=== PATIENT | female | born 1935 | race Caucasian/White ===

== ENCOUNTER 2020-03-31 12:43 | Inpatient (IN) | payer OTHER ==
[2020-03-31] MEDS ORDERED: SODIUM CHLORIDE 1,000 ML IV SCH (13:00)
[2020-03-31] MEDS ORDERED: SODIUM CHLORIDE 2,177 ML IV ONE (13:59)
[2020-03-31] MEDS ORDERED: ACETAMINOPHEN 1000 MG/100 ML VIAL (NON FORMULARY) IVPB ONE (14:05)
[2020-03-31 14:22] LABS: BASO % 0.7 % (0-2.0); EOS % 0.3 % (0-4.5); HEMATOCRIT 44.8 % (32.4-45.2); HEMOGLOBIN 14.9 GM/dL (10.7-15.3); LYMPH % 3.9 % (8-40); MCH 29.3 pg (25.7-33.7); MCHC 33.3 g/dl (32.0-36.0); MEAN CELL VOLUME 88.1 fl (80-96); MEAN PLT VOLUME 7.3 fl (7.5-11.1); MONO % 7.4 % (3.8-10.2); NEUT % 87.7 % (42.8-82.8); PLATELET COUNT 288 K/MM3 (134-434); RBC 5.09 M/mm3 (3.60-5.2); RDW 15.3 % (11.6-15.6)
[2020-03-31] MEDS ORDERED: LACTATED RINGERS SOLUTION 1000 ML INFUS.BAG IV ONE (14:23)
[2020-03-31] MEDS ORDERED: ACETAMINOPHEN INJECTION 100 ML IVPB ONE (14:42)
[2020-03-31 14:59] LABS: VENOUS BASE EXCESS -3.2 mmol/L (-2-2); VENOUS O2 SATURATION 46.5 % (70-80); VENOUS PCO2 44.3 mmHg (38-52); VENOUS PH 7.33 (7.310-7.410)
[2020-03-31 15:02] LABS: ALBUMIN 3.7 g/dl (3.4-5.0); ALK PHOS 81 U/L (45-117); ANION GAP 7 MMOL/L (8-16); BILIRUBIN,TOTAL 0.5 mg/dL (0.2-1); BLOOD UREA NITROGEN 22.4 mg/dL (7-18); CALCIUM 9.1 mg/dL (8.5-10.1); CHLORIDE 108 mmol/L (98-107); CO2 27 mmol/L (21-32); CREATININE 1.4 mg/dL (0.55-1.3); GLUCOSE,RANDOM 164 mg/dL (74-106); POTASSIUM 4.1 mmol/L (3.5-5.1); SGOT/AST 19 U/L (15-37); SGPT/ALT 19 U/L (13-61); SODIUM 141 mmol/L (136-145); TOT PROT 7.2 g/dl (6.4-8.2)
[2020-03-31 15:10] LABS: ANISOCYTOSIS 1+; MACROCYTOSIS 0; OVALOCYTE 1+; PLATELET ESTIMATE NORMAL; TEAR DROP CELLS 1+
--- NOTE | 2020-03-31 15:10 | PDOC ---
Attending Attestation - Resident Resident Name: Thomas Christensen - ED Attending Attestation I have performed the following: I have examined & evaluated the patient, The case was reviewed & discussed with the resident, I agree w/resident's findings & plan - HPI HPI: 03/31/20 15:07 High functioning 84-year-old female with history of early dementia brought in by son for episode of unresponsiveness earlier today. Patient has been at her b aseline, which includes near complete ADLs, but today was found seated by son confused and lethargic. now improved, has no specific complaints other than generalized weakness. - Physicial Exam PE: 03/31/20 15:09 febrile, o2 sat upper 80s on room air, sat 100 on 2L on my exam alert, coherent, pleasant atraumatic, neck supple s1s2 rrr. coarse BS both bases abd benign no edema, moves all 4 extremities neuro nonfocal - Medical Decision Making 03/31/20 15:10 84-year-old female presents with altered mental status/generalized weakness, febrile on arrival concerning for Sirs/sepsis. Sepsis protocol initiated IV fluids, antipyretics Chest x-ray, EKG Antibiotics as dictated by findings Admit Heart Score/ECG Review #1 ECG reviewed & interpreted by me at: 13:18 General ECG Interpretation: Sinus Rhythm, Normal Rate (73), Normal Intervals (qtc 464), No acute ischemic changes Discharge - Discharge Information Problems reviewed: Yes Clinical Impression/Diagnosis: Fever Qualifiers: Fever type: unspecified Qualified Code(s): R50.9 - Fever, unspecified Condition: Fair - Follow up/Referral Referrals: Kwaku Mcknight MBBS [Primary Care Provider] - - Patient Discharge Instructions - Post Discharge Activity
--- NOTE | 2020-03-31 15:15 | PDOC ---
History of Present Illness - General Chief Complaint: Diarrhea Stated Complaint: GASTRIC PROBLEMS Time Seen by Provider: 03/31/20 13:46 - History of Present Illness Initial Comments: 03/31/20 14:59 84yo F w/ hx of HTN, HLD, and dementia presents after her son found her lethargic in the rocking chair this AM after soiling herself. Son called 911, and by the time she arrived she was "responsive and oriented to her baseline," according to the son. Son denies similar episodes, recent ABX, fevers, rashes, changes in appetite, b owel or bladder habits. Was recently seen by her PCP via telehealth. Apparently she was noted to be healthy except for her blood sugar being close to DM2, according to the son. Denies h/o seizures. Past History - Medical History Allergies/Adverse Reactions: Allergies Allergy/AdvReac Type Severity Reaction Status Date / Time No Known Allergies Allergy Verified 03/31/20 13:20 Home Medications: Ambulatory Orders Citalopram Hydrobromide [Citalopram HBr] 40 mg PO DAILY 03/31/20 Lisinopril [Prinivil -] 40 mg PO DAILY 03/31/20 Memantine HCl [Memantine HCl ER] 28 mg PO DAILY 03/31/20 Omeprazole 20 mg PO DAILY 03/31/20 Pravastatin Sodium [Pravachol (Nf)] 40 mg PO HS 03/31/20 COPD: No Dementia: Yes Diabetes: Yes HTN: Yes Hypercholesterolemia: Yes Psychiatric Problems: Yes (anxiety) - Reproductive History Is Patient Now?: No - Psycho-Social/Smoking History Smoking History: Never smoked - Substance Abuse Hx (Audit-C & DAST Scrn) How often the patient has a drink containing alcohol: Never Score: In Men: 4 or > Positive; In Women: 3 or > Positive: 0 Screen Result (Pos requires Nsg. Audit-10AR): Negative In the last yr the pt used illegal drug/Rx for NonMed reason: No Score: Yes response is considered Positive: 0 Screen Result (Positive result requires Nsg. DAST-10): Negative Review of Systems - Review of Systems Able to Perform ROS?: No (given by son) Constitutional: No: Fever, Loss of Appetite, Malaise HEENTM: No: Nose Congestion Respiratory: No: Cough, Wheezing, Productive cough Cardiac (ROS): No: Syncope ABD/GI: Yes: Diarrhea (1 episode, only today). No: Constipated, Vomiting : No: Dysuria, Hematuria, Incontinence, Pain Integumentary: No: Bruising, Pallor, Rash Neurological: No: Seizure Endocrine: No: Unexplained Weight Gain, Unexplained Weight Loss *Physical Exam - Vital Signs Last Vital Signs Temp Pulse Resp BP Pulse Ox 101.6 F H 67 18 126/73 100 03/31/20 12:50 03/31/20 12:50 03/31/20 12:50 03/31/20 12:50 03/31/20 12:50 - Physical Exam 03/31/20 15:20 confused at baseline General Appearance: Yes: Nourished, Appropriately Dressed, Disheveled HEENT: positive: EOMI, Normal Voice. negative: Scleral Icterus (R), Scleral Icterus (L), Sinus Tenderness Neck: positive: Trachea midline, Supple. negative: Rigidity Respiratory/Chest: positive: Lungs Clear, Normal Breath Sounds. negative: Respiratory Distress, Accessory Muscle Use, Labored Respiration Cardiovascular: positive: Regular Rhythm, Regular Rate Gastrointestinal/Abdominal: positive: Normal Bowel Sounds, Soft. negative: Tender, Distended Integumentary: positive: Normal Color, Dry, Warm Neurologic: positive: Alert, Motor Strength 5/5, Confused, Other (Stroke FAST exam negative). negative: Fully Oriented (demented at baseline) Heart Score/ECG Review - ECG Intrepretation Rhythm: Regular Rhythm - Nesmith Nesmith: Normal - P and [place] Atrial Enlargement: Left - QRS Poor R Wave Progression: Yes Q Wave Present: No - ST and T Early Repolarization: No Non Specific ST-T Wave changes: No Flattened T Waves: No - ECG Impressions Normal ECG: Yes Non-specific ST Elevation: No Bradycardia: No Comment:: 03/31/20 16:18 NSR, artifact baseline Rate [address] changes appreciated Normal axis Poor R wave progression in V3 no hypertrophy appreciated intervals wnl. ED Treatment Course - LABORATORY CBC & Chemistry Diagram: 04/01/20 07:10 04/01/20 07:10 - ADDITIONAL ORDERS Additional order review: 03/31/20 14:07 RBC 5.09 MCV 88.1 MCHC 33.3 RDW 15.3 MPV 7.3 L Neutrophils % 87.7 H Lymphocytes % 3.9 L Monocytes % 7.4 Eosinophils % 0.3 Basophils % 0.7 - RADIOLOGY Radiology Studies Ordered: Category Date Time Status HEAD CT WITHOUT CONTRAST [CT] Stat CT Scan 03/31/20 14:03 Ordered CHEST X-RAY PORTABLE* [RAD] Stat Radiology 03/31/20 14:00 Ordered - Medications Given in the ED: ED Medications Discontinued Medications Generic Name Dose Route Start Last Admin Trade Name Claire PRN Reason Stop Dose Admin Acetaminophen 1,000 mg 03/31/20 14:05 03/31/20 14:45 Ofirmev Injection - IVPB 03/31/20 14:06 1,000 mg ONCE ONE Administration Sodium Chloride 1,000 mls @ 42 mls/hr 03/31/20 13:00 03/31/20 14:49 Normal Saline - IV Not Given ASDIR CHIKIS Sodium Chloride 2,177 mls @ 1,088.5 mls/hr 03/31/20 13:59 03/31/20 14:49 Normal Saline - 30 ml/kg infuse over 2 hr (2177 ml) 03/31/20 15:58 Not Given IV ONCE ONE Lactated Ringer's 1,000 ml 03/31/20 14:23 03/31/20 14:49 Lactated Ringers Solution IV 03/31/20 14:24 1,000 ml ONCE ONE Administration Medical Decision Making - Medical Decision Making 03/31/20 15:24 84yo F w/ hx of HTN, HDL, and dementia presenting w/ GARCIA, 1 episode diarrhea, fever, and lethargy this AM. DDx: bleed, CVA/TIA, seizure, hypoglycemia, infection, syncope. no trauma, no focal neuro deficits, but with GARCIA and HTN -> will CT head to assess for bleed. no focal neuro deficits, now at baseline orientation -> CVA less likely. Still considering TIA. WBC elevated to 20. -> likely infection -> CXR and UA and will empirically cover w/ Vanc and Zosyn 03/31/20 16:37 03/31/20 17:04 UA negative for infection. XRay read as elevated hemidiaphragm vs hiatal hernia 03/31/20 18:13 UA negative. still no source of elevated WBC and fever. Given Diarrhea and still no source -> will CT ABD and pelvis CT ABD Pelvis read as no acute pathology. Will sign out this patient to Dr. Menon. Discharge - Discharge Information Problems reviewed: Yes Clinical Impression/Diagnosis: Fever Qualifiers: Fever type: unspecified Qualified Code(s): R50.9 - Fever, unspecified Leukocytosis Qualifiers: Leukocytosis type: bandemia Qualified Code(s): D72.825 - Bandemia Condition: Fair - Follow up/Referral - Patient Discharge Instructions - Post Discharge Activity
[2020-03-31] MEDS ORDERED: VANCOMYCIN 1,000 MG in DEXTROSE 5%-WATER - 250 ML IVPB ONE (16:36)
[2020-03-31] MEDS ORDERED: PIPERACILLIN/TAZOB 3.375 GM 3.375 GM in DEXTROSE 5%-WATER - 50 ML IVPB ONE (16:36)
[2020-03-31] MEDS ORDERED: PIPERACILLIN/TAZOB 2.25 GM 2.25 GM in DEXTROSE 5%-WATER - 50 ML IVPB ONE (16:38)
[2020-03-31 16:41] LABS: EPI CELLS >36 /uL (0-25.1); HYALINE CASTS 25 /uL (0-3.1); PH,URINE 5.5 (5.0-8.0); URINE APPEARANCE CLEAR; URINE BACTERIA 49 /uL (0-1359); URINE BILIRUBIN NEGATIVE (NEGATIVE); URINE COLOR YELLOW; URINE GLUCOSE (UA) NEGATIVE (NEGATIVE); URINE KETONE NEGATIVE (NEGATIVE); URINE LEUK ESTERASE NEGATIVE (NEGATIVE); URINE NITRITE NEGATIVE (NEGATIVE); URINE PROTEIN 1+ (NEGATIVE); URINE RBC 23 /uL (0-23.9); URINE UROBILINOGEN 0.2 mg/dL (0.2-1.0); URINE WBC 39 /uL (0-25.8)
[2020-03-31] MEDS ORDERED: PIPERACILLIN/TAZOB 2.25 GM 2.25 GM/50 ML BAG IVPB ONE (17:03)
[2020-03-31] MEDS ORDERED: VANCOMYCIN 1 GRAM (PRE-DOCKED) 1,000 MG/250 ML BAG IVPB ONE (17:04)
--- NOTE | 2020-03-31 20:27 | PDOC ---
*Physical Exam - Vital Signs Last Vital Signs Temp Pulse Resp BP Pulse Ox 98.9 F 57 L 20 127/67 95 03/31/20 18:09 03/31/20 20:00 03/31/20 20:00 03/31/20 20:00 03/31/20 20:00 ED Treatment Course - LABORATORY CBC & Chemistry Diagram: 03/31/20 14:07 03/31/20 14:07 - ADDITIONAL ORDERS Additional order review: Laboratory Results 03/31/20 03/31/20 03/31/20 18:10 16:00 14:40 VBG pH 7.330 POC VBG pCO2 44.3 POC VBG pO2 27.3 L VBG HCO3 22.8 L VBG O2 Sat (Harris) 46.5 L VBG Base Excess -3.2 L Sodium Potassium Chloride Carbon Dioxide Anion Gap BUN Creatinine Est GFR (CKD-EPI)AfAm Est GFR (CKD-EPI)NonAf Random Glucose Lactic Acid 1.8 Calcium Total Bilirubin AST ALT Alkaline Phosphatase Creatine Kinase CK-MB (CK-2) Troponin I Total Protein Albumin Urine Color Yellow Urine Appearance Clear Urine pH 5.5 Ur Specific Beverly 1.014 Urine Protein 1+ H Urine Glucose (UA) Negative Urine Ketones Negative Urine Blood Negative Urine Nitrite Negative Urine Bilirubin Negative Urine Urobilinogen 0.2 Ur Leukocyte Esterase Negative Urine WBC (Auto) 39 Urine RBC (Auto) 23 Urine Casts (Auto) 25 U Epithel Cells (Auto) >36 Urine Bacteria (Auto) 49 Blood Type Antibody Screen 03/31/20 03/31/20 03/31/20 14:07 14:07 14:07 VBG pH POC VBG pCO2 POC VBG pO2 VBG HCO3 VBG O2 Sat (Harris) VBG Base Excess Sodium 141 Potassium 4.1 Chloride 108 H Carbon Dioxide 27 Anion Gap 7 L BUN 22.4 H Creatinine 1.4 H Est GFR (CKD-EPI)AfAm 39.33 Est GFR (CKD-EPI)NonAf 33.94 Random Glucose 164 H Lactic Acid 2.1 H Calcium 9.1 Total Bilirubin 0.5 AST 19 ALT 19 Alkaline Phosphatase 81 Creatine Kinase 139 CK-MB (CK-2) 3.1 Troponin I < 0.02 Total Protein 7.2 Albumin 3.7 Urine Color Urine Appearance Urine pH Ur Specific Beverly Urine Protein Urine Glucose (UA) Urine Ketones Urine Blood Urine Nitrite Urine Bilirubin Urine Urobilinogen Ur Leukocyte Esterase Urine WBC (Auto) Urine RBC (Auto) Urine Casts (Auto) U Epithel Cells (Auto) Urine Bacteria (Auto) Blood Type A NEGATIVE Antibody Screen Negative 03/31/20 14:07 RBC 5.09 MCV 88.1 MCHC 33.3 RDW 15.3 MPV 7.3 L Neutrophils % 87.7 H Lymphocytes % 3.9 L Monocytes % 7.4 Eosinophils % 0.3 Basophils % 0.7 - Medications Given in the ED: ED Medications Discontinued Medications Generic Name Dose Route Start Last Admin Trade Name Jamesq PRN Reason Stop Dose Admin Acetaminophen 1,000 mg 03/31/20 14:05 03/31/20 14:45 Ofirmev Injection - IVPB 03/31/20 14:06 1,000 mg ONCE ONE Administration Sodium Chloride 1,000 mls @ 42 mls/hr 03/31/20 13:00 03/31/20 14:49 Normal Saline - IV Not Given ASDIR CHIKIS Sodium Chloride 2,177 mls @ 1,088.5 mls/hr 03/31/20 13:59 03/31/20 14:49 Normal Saline - 30 ml/kg infuse over 2 hr (2177 ml) 03/31/20 15:58 Not Given IV ONCE ONE Vancomycin HCl 1,000 mg/ 250 mls @ 166.667 mls/hr 03/31/20 16:36 03/31/20 18:08 Dextrose IVPB 03/31/20 18:05 166.667 mls/hr ONCE ONE Administration Piperacillin Sod/Tazobactam 50 mls @ 100 mls/hr 03/31/20 16:36 03/31/20 18:25 Sod 3.375 gm/ Dextrose IVPB 03/31/20 17:05 Not Given ONCE ONE Protocol Piperacillin Sod/Tazobactam 50 mls @ 100 mls/hr 03/31/20 16:38 03/31/20 17:10 Sod 2.25 gm/ Dextrose IVPB 03/31/20 17:07 100 mls/hr ONCE ONE Administration Protocol Lactated Ringer's 1,000 ml 03/31/20 14:23 03/31/20 14:49 Lactated Ringers Solution IV 03/31/20 14:24 1,000 ml ONCE ONE Administration Medical Decision Making - Medical Decision Making 03/31/20 20:26 s/o from AM team - CT C/A/P demonstrating large hiatal hernia but no definite source for fever and WBC - labs reviewed; WBC 20 - will admit for suspected sepsis 03/31/20 21:24 endorsed to hospitalist Discharge - Discharge Information Problems reviewed: Yes Clinical Impression/Diagnosis: Fever Qualifiers: Fever type: unspecified Qualified Code(s): R50.9 - Fever, unspecified Condition: Fair - Admission Yes - Follow up/Referral Referrals: Kwaku Mcknight MBBS [Primary Care Provider] - - Patient Discharge Instructions - Post Discharge Activity
--- NOTE | 2020-03-31 21:03 | PN ---
Teaching Attending Note Name of Resident: Feliz Balderas ATTENDING PHYSICIAN STATEMENT I saw and evaluated the patient. I reviewed the resident's note and discussed the case with the resident. I agree with the resident's findings and plan as documented. SUBJECTIVE: Patient is an 84 year old woman with a PMH of HTN, HLD and Dementia presents af ter her son found her lethargic in the rocking chair this morning after soiling herself. Son called 911, and by the time they arrived she was "responsive and oriented to her baseline," according to the son. Son denies similar episodes, recent antibiotics use, fevers, rashes, seizures, changes in appetite, bowel or bladder habits. Was recently seen by her PCP via telehealth. Apparently she was noted to be healthy except for hyperglycemia. No reported chest pain, shortness of breath, abdominal pain, vomiting, dysuria, frequency, melena, hematochezia or hematuria. Denies alcohol, tobacco or illicit drug use. No sick contacts or recent travels. Family history is unremarkable. OBJECTIVE: Alert Vital Signs Period Temp Pulse Resp BP Sys/Beckwith Pulse Ox Last 24 Hr 98.9 F-101.6 F 57-67 18-20 126-144/67-84 95-100 HEENT: No Jaundice, eye redness or discharge, PERRLA, EOMI. Normocephalic, atraumatic. External ears are normal and hearing is grossly intact. No nasal discharge. Neck: Supple, nontender. No palpable adenopathy or thyromegaly. No JVD Chest: Good effort. Clear to auscultation and percussion. Heart: Regular. No S3 or rub; 3/6 SIA. Abdomen: Not distended, soft, nontender and no HSM. No rebound or guarding. Normal bowel sounds. Ext: Peripheral pulses intact. No leg edema. Skin: Warm and dry. No petechiae, rash or ecchymosis. Neuro: Alert. Oriented x3. CN 2-12 grossly intact. Sensation grossly intact in all four extremities and DTR are symmetric. Psych: Appropriate mood and affect. Good insight. Home Medications Medication Instructions Recorded Citalopram Hydrobromide 40 mg PO DAILY 03/31/20 [Citalopram HBr] Lisinopril [Prinivil -] 40 mg PO DAILY 03/31/20 Memantine HCl [Memantine HCl ER] 28 mg PO DAILY 03/31/20 Omeprazole 20 mg PO DAILY 03/31/20 Pravastatin Sodium [Pravachol (Nf)] 40 mg PO HS 03/31/20 Abnormal Lab Results 03/31/20 03/31/20 03/31/20 14:07 14:07 14:07 WBC 20.0 H MPV 7.3 L Absolute Neuts (auto) 17.5 H Neutrophils % 87.7 H Neutrophils % (Manual) 86.9 H Lymphocytes % 3.9 L Lymphocytes % (Manual) 5.0 L POC VBG pO2 VBG HCO3 VBG O2 Sat (Harris) VBG Base Excess Chloride 108 H Anion Gap 7 L BUN 22.4 H Creatinine 1.4 H Random Glucose 164 H Lactic Acid 2.1 H Urine Protein 03/31/20 03/31/20 14:40 16:00 WBC MPV Absolute Neuts (auto) Neutrophils % Neutrophils % (Manual) Lymphocytes % Lymphocytes % (Manual) POC VBG pO2 27.3 L VBG HCO3 22.8 L VBG O2 Sat (Harris) 46.5 L VBG Base Excess -3.2 L Chloride Anion Gap BUN Creatinine Random Glucose Lactic Acid Urine Protein 1+ H Current Medications Generic Name Dose Route Start Last Admin Trade Name Freq PRN Reason Stop Dose Admin Heparin Sodium (Porcine) 5,000 unit 03/31/20 22:30 Heparin - SQ TID CHIKIS Sodium Chloride 1,000 mls @ 83 mls/hr 03/31/20 22:30 Normal Saline - IV ASDIR CHIKIS Vancomycin HCl 1 gm in 200 mls @ 133.333 mls/hr 04/01/20 10:00 Vancomycin 1 Gm Premix - IVPB Q24H CHIKIS Piperacillin Sod/Tazobactam 50 mls @ 100 mls/hr 04/01/20 10:00 Sod 3.375 gm/ Dextrose IVPB Q8H-IV CHIKIS Protocol Piperacillin Sod/Tazobactam 50 mls @ 100 mls/hr 04/01/20 10:00 Sod 3.375 gm/ Dextrose IVPB 04/02/20 02:29 Q8H CHIKIS Vancomycin HCl 1,000 mg in 250 mls @ 250 mls/hr 04/01/20 10:00 Vancomycin (Pre-Docked) IVPB 04/01/20 10:59 ONCE ONE Insulin Aspart 1 vial 04/01/20 07:00 Novolog Vial Sliding Scale - SQ ACHS [facility] Protocol ASSESSMENT AND PLAN: 1. Sepsis of unknown source - No acute abnormality on CXR. No evidence of acute intracranial pathology on noncontrast head CT scan. CT scan of chest/abdomen/pelvis with IV contrast shows hiatal hernia and chronic interstitial lung disease. Viral testing for COVID-19 ordered and patient placed on airborne, droplet and contact isolation. ER staff prescribed IV Vancomycin, IV Zosyn and IV NS for the patient. Will consult Neurology and ID and discuss n eed for spinal tap to rule out meningitis. EKG shows at 73/minute and QTc 464 with no significant acute ischemic ST-T wave changes. Initial troponin is negative. Will continue IV NS according to sepsis protocol, continue IV antibiotics, check HbA1c, monitor blood glucose and implement insulin sliding scale, do speech and swallow evaluation, neurochecks and implement fall/aspiration/seizure precautions. Consult ID. Will continue comprehensive care for all of patients comorbid conditions. 2. HUI? Likely partly due to dehydration. Will get kidney sonogram, hydrate with IV NS, monitor urine output and consult Nephrology. Avoid nephrotoxic agents such as NSAIDS, aminoglycosides, contrast dyes and certain Alternative medicine products. 3. Hypertension Will restart suitable outpatient antihypertensive drugs when clinically appropriate. Subsequently, will revise regimen to ensure [id number] excellent BP control. Patient counseled on the injurious effects of uncontrolled hypertension. Nonpharmacologic measures to control hypertension like weight loss, salt restriction and exercise stressed. Importance of adherence to treatment regimen and attainment of normotension emphasized. 4. DVT prophylaxis - Heparin 5000u sq tid. 5. Advance directives - Full code
--- NOTE | 2020-04-01 00:40 | HP ---
CHIEF COMPLAINT: AMS, Unresponsive PCP: Kwaku Mcknight HISTORY OF PRESENT ILLNESS: Ratna Howell is a 84 Y F with a PMH of baseline dementia, HTN, HLD, brought in by EMS for AMS/unresponsive at home. Patient is a poor historian, baseline dementia, AAox2. Hx was provided by her son at bedside, who reports that he found his mother on a rocking chair, unresponsive and had Soiled her self( urinary and bowel incontinence). He reports that he called 911, when EMS arrived, she was awake and back to her usual baseline. He denies any complaints from his mother prior to the episode. He reports that she only complained of an headache in ER. No previous episodes, No hx of seizures. Son reports that his mother likes to walk around outside, but denies any tick bites, visible ticks. Son reports that his mother lives with him and he takes turns with his in taking care of her. In ER she received: IV Vancomycin, IV Zosyn and IV NS ER course was notable for: (1) T 101.6, WBC 20, LAc acid 2.1 (2) BUN/Crea 22.4/1.4 (3) CXR Venous congestion + hiatal hernia (4) CT Chest/abdpelv: Chronic interstitial lung disease, Large hiatal hernia Recent Travel: denies PAST MEDICAL HISTORY: As above in HPI PAST SURGICAL HISTORY: Social History: Smoking: denies Alcohol: denies Drugs: denies Allergies No Known Allergies Allergy (Verified 03/31/20 13:20) HOME MEDICATIONS: Home Medications Medication Instructions Recorded Citalopram Hydrobromide 40 mg PO DAILY 03/31/20 [Citalopram HBr] Lisinopril [Prinivil -] 40 mg PO DAILY 03/31/20 Memantine HCl [Memantine HCl ER] 28 mg PO DAILY 03/31/20 Omeprazole 20 mg PO DAILY 03/31/20 Pravastatin Sodium [Pravachol (Nf)] 40 mg PO HS 03/31/20 REVIEW OF SYSTEMS Unable to obtain due to patient mental status Son denies any complaints from mother of chest pain, shortness of breath, abdominal pain, vomiting, dysuria, frequency, melena, hematochezia or hematuria PHYSICAL EXAMINATION Vital Signs - 24 hr 03/31/20 03/31/20 03/31/20 12:50 16:09 18:09 Temperature 101.6 F H 98.9 F Pulse Rate 67 Pulse Rate [ 62 Apical] Respiratory 18 18 19 Rate Blood Pressure 126/73 Blood Pressure 144/84 [Left Arm] O2 Sat by Pulse 100 100 97 Oximetry (%) 03/31/20 03/31/20 03/31/20 18:10 20:00 22:56 Temperature Pulse Rate 62 Pulse Rate [ 57 L 61 Apical] Respiratory 20 18 Rate Blood Pressure Blood Pressure 127/67 130/70 [Left Arm] O2 Sat by Pulse 97 95 95 Oximetry (%) GENERAL: AAOx3, in no acute distress HEENT: NCAT, PERRLA, EOMI, sclera anicteric, conjunctiva clear, oropharynx clear w/o exudates. MMM. NECK: Normal ROM, supple, no lymphadenopathy, JVD, or masses LUNGS: CTABL no wheezes/ rhonchi/ rales. No distress, speaks in full sentences. No increased work of breathing. HEART: RRR, normal S1 S2, Systolic ejection murmur 4/6 along the left lateral border. no /R/G, peripheral pulses 2+ and equal b/l ABDOMEN: Soft, non-tender, + BS. No guarding or rebound. No hepatomegaly or splenomegaly. MSK: ROM WNL, NO CVA tenderness EXTREMITIES: Normal inspection. No peripheral edema. No clubbing or cyanosis. NEUROLOGICAL: CN II-XII intact. Normal speech, gait not observed, no focal sensorimotor deficits. PSYCH: Normal mood, normal affect. SKIN: Warm, Dry, normal turgor, no rashes or lesions noted Laboratory Results - last 24 hr 03/31/20 03/31/20 03/31/20 14:07 14:07 14:07 WBC 20.0 H RBC 5.09 Hgb 14.9 Hct 44.8 MCV 88.1 MCH 29.3 MCHC 33.3 RDW 15.3 Plt Count 288 MPV 7.3 L Absolute Neuts (auto) 17.5 H Neutrophils % 87.7 H Neutrophils % (Manual) 86.9 H Band Neutrophils % 1.0 Lymphocytes % 3.9 L Lymphocytes % (Manual) 5.0 L Monocytes % 7.4 Monocytes % (Manual) 5 Eosinophils % 0.3 Eosinophils % (Manual) 0.0 Basophils % 0.7 Basophils % (Manual) 1.0 Myelocytes % (Man) 0 Promyelocytes % (Man) 0 Blast Cells % (Manual) 0 Nucleated RBC % 0 Metamyelocytes 0 Hypochromia 0 Platelet Estimate Normal Platelet Comment Present Polychromasia 0 Poikilocytosis 1+ Anisocytosis 1+ Microcytosis 1+ Macrocytosis 0 Spherocytes 1+ Tear Drop Cells 1+ Ovalocytes 1+ VBG pH POC VBG pCO2 POC VBG pO2 VBG HCO3 VBG O2 Sat (Harris) VBG Base Excess Sodium 141 Potassium 4.1 Chloride 108 H Carbon Dioxide 27 Anion Gap 7 L BUN 22.4 H Creatinine 1.4 H Est GFR (CKD-EPI)AfAm 39.33 Est GFR (CKD-EPI)NonAf 33.94 Random Glucose 164 H Lactic Acid 2.1 H Calcium 9.1 Total Bilirubin 0.5 AST 19 ALT 19 Alkaline Phosphatase 81 Creatine Kinase 139 CK-MB (CK-2) 3.1 Troponin I < 0.02 Total Protein 7.2 Albumin 3.7 Urine Color Urine Appearance Urine pH Ur Specific [place] Urine Protein Urine Glucose (UA) Urine Ketones Urine Blood Urine Nitrite Urine Bilirubin Urine Urobilinogen Ur Leukocyte Esterase Urine WBC (Auto) Urine RBC (Auto) Urine Casts (Auto) U Pathogenic Cast Auto U Epithel Cells (Auto) Urine Bacteria (Auto) Blood Type Antibody Screen 03/31/20 03/31/20 03/31/20 14:07 14:40 16:00 WBC RBC Hgb Hct MCV MCH MCHC RDW Plt Count MPV Absolute Neuts (auto) Neutrophils % Neutrophils % (Manual) Band Neutrophils % Lymphocytes % Lymphocytes % (Manual) Monocytes % Monocytes % (Manual) Eosinophils % Eosinophils % (Manual) Basophils % Basophils % (Manual) Myelocytes % (Man) Promyelocytes % (Man) Blast Cells % (Manual) Nucleated RBC % Metamyelocytes Hypochromia Platelet Estimate Platelet Comment Polychromasia Poikilocytosis Anisocytosis Microcytosis Macrocytosis Spherocytes Tear Drop Cells Ovalocytes VBG pH 7.330 POC VBG pCO2 44.3 POC VBG pO2 27.3 L VBG HCO3 22.8 L VBG O2 Sat (Harris) 46.5 L VBG Base Excess -3.2 L Sodium Potassium Chloride Carbon Dioxide Anion Gap BUN Creatinine Est GFR (CKD-EPI)AfAm Est GFR (CKD-EPI)NonAf Random Glucose Lactic Acid Calcium Total Bilirubin AST ALT Alkaline Phosphatase Creatine Kinase CK-MB (CK-2) Troponin I Total Protein Albumin Urine Color Yellow Urine Appearance Clear Urine pH 5.5 Ur Specific [place] 1.014 Urine Protein 1+ H Urine Glucose (UA) Negative Urine Ketones Negative Urine Blood Negative Urine Nitrite Negative Urine Bilirubin Negative Urine Urobilinogen 0.2 Ur Leukocyte Esterase Negative Urine WBC (Auto) 39 Urine RBC (Auto) 23 Urine Casts (Auto) 25 U Pathogenic Cast Auto Few U Epithel Cells (Auto) >36 Urine Bacteria (Auto) 49 Blood Type A NEGATIVE Antibody Screen Negative 03/31/20 18:10 WBC RBC Hgb Hct MCV MCH MCHC RDW Plt Count MPV Absolute Neuts (auto) Neutrophils % Neutrophils % (Manual) Band Neutrophils % Lymphocytes % Lymphocytes % (Manual) Monocytes % Monocytes % (Manual) Eosinophils % Eosinophils % (Manual) Basophils % Basophils % (Manual) Myelocytes % (Man) Promyelocytes % (Man) Blast Cells % (Manual) Nucleated RBC % Metamyelocytes Hypochromia Platelet Estimate Platelet Comment Polychromasia Poikilocytosis Anisocytosis Microcytosis Macrocytosis Spherocytes Tear Drop Cells Ovalocytes VBG pH POC VBG pCO2 POC VBG pO2 VBG HCO3 VBG O2 Sat (Harris) VBG Base Excess Sodium Potassium Chloride Carbon Dioxide Anion Gap BUN Creatinine Est GFR (CKD-EPI)AfAm Est GFR (CKD-EPI)NonAf Random Glucose Lactic Acid 1.8 Calcium Total Bilirubin AST ALT Alkaline Phosphatase Creatine Kinase CK-MB (CK-2) Troponin I Total Protein Albumin Urine Color Urine Appearance Urine pH Ur Specific [place] Urine Protein Urine Glucose (UA) Urine Ketones Urine Blood Urine Nitrite Urine Bilirubin Urine Urobilinogen Ur Leukocyte Esterase Urine WBC (Auto) Urine RBC (Auto) Urine Casts (Auto) U Pathogenic Cast Auto U Epithel Cells (Auto) Urine Bacteria (Auto) Blood Type Antibody Screen ASSESSMENT/PLAN: 84 Y F with a PMH of baseline dementia, HTN, HLD, brought in by EMS for AMS/unresponsive at home, in ER she was febrile w/leukocytosis and elevated LAC acid, admitted for Sepsis #Sepsis - unknown etiology, febrile w/leukocytosis and elevated LAC acid - CXR, Chest CT, and CTAP did not reveal any acute pathology - Pending Covid PCR - Pending Ucx and Bld Cx - ID consulted - Neurology consulted, Possible Lumbar tap to r/o Meningitis - Continue with Vanc + Zosyn #HUI - Likely 2/2 to dehydration, poor po intake - BUN/crea 22.4/1.2 - Pending renal/bladder us - Continue IVF: NS 83mls/hr - Avoid nephrotoxic drugs #hx of HTN - Stable at this time - will resume home meds in AM, med rec FEN - NS 83mls/hr - Continue to monitor electrolytes - Speech eval pending DVT ppx - Heparin 5000u sq tid. Dispo - Will continue to monitor in MS Family Medical History Family History: As Documented Visit type - Medication Review Med list reviewed for High Risk Meds patients 65 and older: Yes - Emergency Visit Emergency Visit: Yes ED Registration Date: 03/31/20 Care time: The patient presented to the Emergency Department on the above date and was hospitalized for further evaluation of their emergent condition. - New Patient This patient is new to me today: No - Critical Care Critical Care patient: No ATTENDING PHYSICIAN STATEMENT I saw and evaluated the patient. I reviewed the resident's note and discussed the case with the resident. I agree with the resident's findings and plan as documented. SUBJECTIVE: OBJECTIVE: ASSESSMENT AND PLAN:
[2020-04-01 02:00] VITALS: BMI 22.9
[2020-04-01] MEDS: HEPARIN NA (PORCINE) 5,000 UNITS/ML 1ML VIAL SQ SCH ×4 (03:28→22:57)
[2020-04-01] MEDS: SODIUM CHLORIDE 1,000 ML IV SCH (03:38)
[2020-04-01] MEDS: INSULIN SLIDING SCALE (NOVOLOG) 1 VIAL SQ SCH ×4 (06:29→23:03)
[2020-04-01 07:48] LABS: BASO % 0.9 % (0-2.0); EOS % 3.4 % (0-4.5); HEMATOCRIT 37.5 % (32.4-45.2); HEMOGLOBIN 12.6 GM/dL (10.7-15.3); MCHC 33.6 g/dl (32.0-36.0); MEAN CELL VOLUME 86.3 fl (80-96); MEAN PLT VOLUME 7.3 fl (7.5-11.1); NEUT % 67.7 % (42.8-82.8); PLATELET COUNT 273 K/MM3 (134-434); RBC 4.35 M/mm3 (3.60-5.2); WHITE BLOOD COUNT 9.9 K/mm3 (4.0-10.0)
[2020-04-01 08:12] LABS: BILIRUBIN,TOTAL 0.6 mg/dL (0.2-1); BLOOD UREA NITROGEN 18.6 mg/dL (7-18); CALCIUM 8.7 mg/dL (8.5-10.1); CREATININE 1.1 mg/dL (0.55-1.3); MAGNESIUM 2.3 mg/dL (1.8-2.4); PHOSPHOROUS 3.8 mg/dL (2.5-4.9); POTASSIUM 3.9 mmol/L (3.5-5.1); TOT PROT 5.9 g/dl (6.4-8.2)
--- NOTE | 2020-04-01 09:01 | EKG ---
Test Reason : Blood Pressure : / mmHG Vent. Rate : 073 BPM Atrial Rate : 073 BPM P-R Int : 196 ms QRS Dur : 086 ms QT Int : 422 ms P-R-T Axes : 074 027 020 degrees QTc Int : 464 ms POOR DATA QUALITY, INTERPRETATION MAY BE ADVERSELY AFFECTED NORMAL SINUS RHYTHM CANNOT RULE OUT ANTERIOR INFARCT , AGE UNDETERMINED ABNORMAL ECG NO PREVIOUS ECGS AVAILABLE Confirmed by Paulette Brower ([id number]) on 04/01/2020 9:00:43 AM Referred By: Confirmed By:Paulette Brower
--- NOTE | 2020-04-01 09:01 | CON.NEURO ---
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 ...LMP: 03/31/20 ...: No - Smoking History Smoking history: Never smoked Home Medications - Allergies Allergies/Adverse Reactions: Allergies Allergy/AdvReac Type Severity Reaction Status Date / Time No Known Allergies Allergy Verified 03/31/20 13:20 - Home Medications Home Medications: Ambulatory Orders Citalopram Hydrobromide [Citalopram HBr] 40 mg PO DAILY 03/31/20 Lisinopril [Prinivil -] 40 mg PO DAILY 03/31/20 Memantine HCl [Memantine HCl ER] 28 mg PO DAILY 03/31/20 Omeprazole 20 mg PO DAILY 03/31/20 Pravastatin Sodium [Pravachol (Nf)] 40 mg PO HS 03/31/20 Family Medical History Family History: Unable to Obtain Review of Systems Unable to obtain ROS, reason: ? Physical Exam-Neuro Vital Signs: Vital Signs Temperature 98.3 F 04/01/20 06:00 Pulse Rate 65 04/01/20 06:00 Respiratory Rate 20 04/01/20 06:00 Blood Pressure 160/93 04/01/20 06:00 O2 Sat by Pulse Oximetry (%) 92 L 04/01/20 06:00 Constitutional: Yes: Well Nourished Neck: Yes: WNL Labs: CBC, BMP 04/01/20 07:10 04/01/20 07:10 - Neuro Exam Level Of Consciousness: Yes: Oriented to Person, Oriented to Place Eyes: Yes: PERRLA Speech: Garbled Dominant Hand: Right Cranial Nerves II-XII Intact: Yes Gag: Present DTR's: 0 Left Bicep, 0 Right Bicep, 0 Left Tricep, 0 Right Tricep, 0 Left Brachioradialis, 0 Right Brachioradialis Babinski: Present Response to light touch: Abnormal Response to pain prick: Abnormal Imaging - Results Cat Scan: Image Reviewed Problem List - Problems (1) Altered mental state Code(s): R41.82 - ALTERED MENTAL STATUS, UNSPECIFIED Assessment/Plan AMS associated with Dehydration and Sepsis Toxic Metabolic Encephalopathy Doubt Meningitis Dementia 1. Repeat Head Ct 09=20 2. ID consult 3. IV fluid 4. Will hold off the LP 5. DVT prophylaxis 6. Blodo work with B12 TSH and Free T4 Thank you Deric Cantu MD neurology [phone]
[2020-04-01] MEDS ORDERED: PIPERACILLIN/TAZOBACTAM 3.375 GM VIAL IVPB ONE (09:39)
[2020-04-01] MEDS ORDERED: DEXTROSE 5%-WATER - 50 ML IVPB ONE ×2 (09:40→14:07)
[2020-04-01] MEDS: MEMANTINE HCL 10 MG TABLET (FP) PO SCH ×2 (09:47→22:58)
[2020-04-01] MEDS: CITALOPRAM HYDROBROMIDE 20 MG TABLET PO SCH (09:47)
[2020-04-01] MEDS: LISINOPRIL 20 MG TABLET (FP) PO SCH (09:47)
[2020-04-01] MEDS ORDERED: PIPERACILLIN/TAZOB 3.375 GM 3.375 GM in DEXTROSE 5%-WATER - 50 ML IVPB SCH (10:00)
[2020-04-01] MEDS ORDERED: VANCOMYCIN 1 GRAM (PRE-DOCKED) 1,000 MG/250 ML BAG IVPB ONE (10:00)
[2020-04-01] MEDS ORDERED: VANCOMYCIN 1 GM PREMIX - 1 GM/200 ML BAG IVPB SCH (10:00)
--- NOTE | 2020-04-01 11:20 | CON.ID ---
Consult Consult Specialty:: infectious disease Referred by:: hospiitalist Reason for Consultation:: fever, confusion - History of Present Illness Chief Complaint: confusion History of Present Illness: 84 yo female found by son at home to be confused in ED fever to 101.6 cultures sent and startd on vanco/zosyn no history of recent hospoitalizations currently she is awake and wants to eat thinks she is in [place] reports she has 5 or 6 sons and no daughters no chest pain or abd pain or headache feels well given vanco/zosyn in ED had ct scans of chest and abd and pelvis, no acute abdominal pathology, larger HH, chronic ILD head ct no acute changes - History Source History Provided By: Medical Record Limitations to Obtaining History: Dementia - 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 Cardio/Vascular: Yes: HTN, Hyperlipdemia ...LMP: 03/31/20 ...: No - Smoking History Smoking history: Never smoked - Social History Usual Living Arrangement: Alone ADL: Family Assistance Place of : [facility] History of Recent Travel: No Home Medications - Allergies Allergies/Adverse Reactions: Allergies Allergy/AdvReac Type Severity Reaction Status Date / Time No Known Allergies Allergy Verified 03/31/20 13:20 - Home Medications Home Medications: Ambulatory Orders Citalopram Hydrobromide [Citalopram HBr] 40 mg PO DAILY 03/31/20 Lisinopril [Prinivil -] 40 mg PO DAILY 03/31/20 Memantine HCl [Memantine HCl ER] 28 mg PO DAILY 03/31/20 Omeprazole 20 mg PO DAILY 03/31/20 Pravastatin Sodium [Pravachol (Nf)] 40 mg PO HS 03/31/20 Family Medical History Family History: Unable to Obtain Review of Systems - Review of Systems Constitutional: reports: No Symptoms Eyes: reports: No Symptoms HENT: reports: No Symptoms Neck: reports: No Symptoms Cardiovascular: reports: No Symptoms. denies: Chest Pain Respiratory: reports: No Symptoms. denies: Cough, SOB Gastrointestinal: reports: No Symptoms. denies: Abdominal Pain, Diarrhea, Nausea, Vomiting Genitourinary: reports: No Symptoms. denies: Dysuria Physical Exam Vital Signs: Vital Signs Temperature 98.5 F 04/01/20 09:46 Pulse Rate 61 04/01/20 09:46 Respiratory Rate 20 04/01/20 09:46 Blood Pressure 146/85 04/01/20 09:46 O2 Sat by Pulse Oximetry (%) 92 L 04/01/20 06:00 Constitutional: Yes: Well Nourished, No Distress, Calm Eyes: Yes: Conjunctiva Clear, EOM Intact HENT: Yes: Atraumatic, Normocephalic. No: Thrush Neck: Yes: Supple, Trachea Midline Cardiovascular: Yes: Regular Rate and Rhythm Respiratory: Yes: Regular, CTA Bilaterally Gastrointestinal: Yes: Normal Bowel Sounds, Soft ...Rectal Exam: Yes: Deferred Extremities: Yes: WNL Edema: No Wound/Incision: Yes: Other (no skin breakdown noted) Psychiatric: Yes: Alert Labs: CBC, BMP 04/01/20 07:10 04/01/20 07:10 Microbiology 03/31/20 14:08 Blood - Peripheral Venous Blood Culture - Preliminary Pending Organism Imaging - Results Cat Scan: Report Reviewed Problem List - Problems (1) Fever Code(s): R50.9 - FEVER, UNSPECIFIED Qualifiers: Fever type: unspecified Qualified Code(s): R50.9 - Fever, unspecified (2) Altered mental state Code(s): R41.82 - ALTERED MENTAL STATUS, UNSPECIFIED (3) Bacteremia due to Gram-positive bacteria Code(s): R78.81 - BACTEREMIA Assessment/Plan mental status most likley due to fever/infection- now improved, she is alert ?bactereemia now with a positive blood culture continue vancomycin add rocephin f/u cultures
[2020-04-01] MEDS ORDERED: VANCOMYCIN 1 GRAM (PRE-DOCKED) 1,000 MG/250 ML BAG IVPB SCH (12:00)
--- NOTE | 2020-04-01 12:22 | PN ---
Physical Exam: SUBJECTIVE: Patient seen and examined at the bedside. she is pleasantly confused and able to answer some of my questions. she knows her name and that she lives in [place]. she knows that she is in the hospital. otherwise, unable to tell me that year or who the president currently is. Son at bedside and POC discussed with him. Per son, patient was found unresponsive at home and had soiled herself. At baseline she can ambulate around the room and is usually continent. He reports she is cared for by family and he feels that her mentation is back to her baseline. OBJECTIVE: Patient is a 84 year female with a significant past medical history of dementia, HTN, HLD, brought in by EMS for AMS/unresponsive at home. Patient is a poor historian, baseline dementia, AAox2. son reports that he found his mother on a rocking chair, unresponsive and had Soiled her self(urinary and bowel incontinence). He reports that he called 911, when EMS arrived, she was awake and back to her usual baseline. He denies any complaints from his mother prior to the episode. He reports that she only complained of an headache in ER. No previous episodes, No hx of seizures and no new medications have been ordered. Sepsis protocl initiated in the ED and she was give IV Vancomycin, IV Zosyn. covid status: pending imaging: head ct: no acute pathology abd ct: large hiatal hernia, no acute pathology otherwise. chronic lung disease. Vital Signs Period Temp Pulse Resp BP Sys/Beckwith Pulse Ox Last 24 Hr 98.3 F-101.6 F 57-67 18-20 126-160/67-93 92-100 GENERAL: The patient is awake, alert, pleasantly confused. knows her name and that she is in the hospital HEAD: Normal with no signs of trauma. EYES: PERRL, extraocular movements intact, sclera anicteric, conjunctiva clear. No ptosis. ENT: Ears normal, nares patent, oropharynx clear without exudates, moist mucous membranes. NECK: Trachea midline, full range of motion, supple. LUNGS: Breath sounds equal, clear to auscultation bilaterally, no wheezes HEART: Regular rate and rhythm ABDOMEN: Soft, nontender, nondistended, normoactive bowel sounds EXTREMITIES: no edema. fungal nails bilateral feet NEUROLOGICAL: Normal speech, gait not observed. PSYCH: Normal mood, normal affect. SKIN: Warm, dry, normal turgor, no rashes or lesions noted Laboratory Results - last 24 hr 03/31/20 03/31/20 03/31/20 14:07 14:07 14:07 WBC 20.0 H RBC 5.09 Hgb 14.9 Hct 44.8 MCV 88.1 MCH 29.3 MCHC 33.3 RDW 15.3 Plt Count 288 MPV 7.3 L Absolute Neuts (auto) 17.5 H Neutrophils % 87.7 H Neutrophils % (Manual) 86.9 H Band Neutrophils % 1.0 Lymphocytes % 3.9 L Lymphocytes % (Manual) 5.0 L Monocytes % 7.4 Monocytes % (Manual) 5 Eosinophils % 0.3 Eosinophils % (Manual) 0.0 Basophils % 0.7 Basophils % (Manual) 1.0 Myelocytes % (Man) 0 Promyelocytes % (Man) 0 Blast Cells % (Manual) 0 Nucleated RBC % 0 Metamyelocytes 0 Hypochromia 0 Platelet Estimate Normal Platelet Comment Present Polychromasia 0 Poikilocytosis 1+ Anisocytosis 1+ Microcytosis 1+ Macrocytosis 0 Spherocytes 1+ Tear Drop Cells 1+ Ovalocytes 1+ VBG pH POC VBG pCO2 POC VBG pO2 VBG HCO3 VBG O2 Sat (Harris) VBG Base Excess Sodium 141 Potassium 4.1 Chloride 108 H Carbon Dioxide 27 Anion Gap 7 L BUN 22.4 H Creatinine 1.4 H Est GFR (CKD-EPI)AfAm 39.33 Est GFR (CKD-EPI)NonAf 33.94 POC Glucometer Random Glucose 164 H Lactic Acid 2.1 H Calcium 9.1 Phosphorus Magnesium Total Bilirubin 0.5 AST 19 ALT 19 Alkaline Phosphatase 81 Creatine Kinase 139 CK-MB (CK-2) 3.1 Troponin I < 0.02 Total Protein 7.2 Albumin 3.7 Urine Color Urine Appearance Urine pH Ur Specific Twain Urine Protein Urine Glucose (UA) Urine Ketones Urine Blood Urine Nitrite Urine Bilirubin Urine Urobilinogen Ur Leukocyte Esterase Urine WBC (Auto) Urine RBC (Auto) Urine Casts (Auto) U Pathogenic Cast Auto U Epithel Cells (Auto) Urine Bacteria (Auto) Blood Type Antibody Screen 03/31/20 03/31/20 03/31/20 14:07 14:40 16:00 WBC RBC Hgb Hct MCV MCH MCHC RDW Plt Count MPV Absolute Neuts (auto) Neutrophils % Neutrophils % (Manual) Band Neutrophils % Lymphocytes % Lymphocytes % (Manual) Monocytes % Monocytes % (Manual) Eosinophils % Eosinophils % (Manual) Basophils % Basophils % (Manual) Myelocytes % (Man) Promyelocytes % (Man) Blast Cells % (Manual) Nucleated RBC % Metamyelocytes Hypochromia Platelet Estimate Platelet Comment Polychromasia Poikilocytosis Anisocytosis Microcytosis Macrocytosis Spherocytes Tear Drop Cells Ovalocytes VBG pH 7.330 POC VBG pCO2 44.3 POC VBG pO2 27.3 L VBG HCO3 22.8 L VBG O2 Sat (Harris) 46.5 L VBG Base Excess -3.2 L Sodium Potassium Chloride Carbon Dioxide Anion Gap BUN Creatinine Est GFR (CKD-EPI)AfAm Est GFR (CKD-EPI)NonAf POC Glucometer Random Glucose Lactic Acid Calcium Phosphorus Magnesium Total Bilirubin AST ALT Alkaline Phosphatase Creatine Kinase CK-MB (CK-2) Troponin I Total Protein Albumin Urine Color Yellow Urine Appearance Clear Urine pH 5.5 Ur Specific Twain 1.014 Urine Protein 1+ H Urine Glucose (UA) Negative Urine Ketones Negative Urine Blood Negative Urine Nitrite Negative Urine Bilirubin Negative Urine Urobilinogen 0.2 Ur Leukocyte Esterase Negative Urine WBC (Auto) 39 Urine RBC (Auto) 23 Urine Casts (Auto) 25 U Pathogenic Cast Auto Few U Epithel Cells (Auto) >36 Urine Bacteria (Auto) 49 Blood Type A NEGATIVE Antibody Screen Negative 03/31/20 04/01/20 04/01/20 18:10 06:24 07:10 WBC 9.9 RBC 4.35 Hgb 12.6 Hct 37.5 D MCV 86.3 MCH 29.0 MCHC 33.6 RDW 15.0 Plt Count 273 MPV 7.3 L Absolute Neuts (auto) 6.7 Neutrophils % 67.7 D Neutrophils % (Manual) Band Neutrophils % Lymphocytes % 18.0 D Lymphocytes % (Manual) Monocytes % 10.0 Monocytes % (Manual) Eosinophils % 3.4 D Eosinophils % (Manual) Basophils % 0.9 Basophils % (Manual) Myelocytes % (Man) Promyelocytes % (Man) Blast Cells % (Manual) Nucleated RBC % 0 Metamyelocytes Hypochromia Platelet Estimate Platelet Comment Polychromasia Poikilocytosis Anisocytosis Microcytosis Macrocytosis Spherocytes Tear Drop Cells Ovalocytes VBG pH POC VBG pCO2 POC VBG pO2 VBG HCO3 VBG O2 Sat (Harris) VBG Base Excess Sodium Potassium Chloride Carbon Dioxide Anion Gap BUN Creatinine Est GFR (CKD-EPI)AfAm Est GFR (CKD-EPI)NonAf POC Glucometer 90 Random Glucose Lactic Acid 1.8 Calcium Phosphorus Magnesium Total Bilirubin AST ALT Alkaline Phosphatase Creatine Kinase CK-MB (CK-2) Troponin I Total Protein Albumin Urine Color Urine Appearance Urine pH Ur Specific Twain Urine Protein Urine Glucose (UA) Urine Ketones Urine Blood Urine Nitrite Urine Bilirubin Urine Urobilinogen Ur Leukocyte Esterase Urine WBC (Auto) Urine RBC (Auto) Urine Casts (Auto) U Pathogenic Cast Auto U Epithel Cells (Auto) Urine Bacteria (Auto) Blood Type Antibody Screen 04/01/20 04/01/20 07:10 11:44 WBC RBC Hgb Hct MCV MCH MCHC RDW Plt Count MPV Absolute Neuts (auto) Neutrophils % Neutrophils % (Manual) Band Neutrophils % Lymphocytes % Lymphocytes % (Manual) Monocytes % Monocytes % (Manual) Eosinophils % Eosinophils % (Manual) Basophils % Basophils % (Manual) Myelocytes % (Man) Promyelocytes % (Man) Blast Cells % (Manual) Nucleated RBC % Metamyelocytes Hypochromia Platelet Estimate Platelet Comment Polychromasia Poikilocytosis Anisocytosis Microcytosis Macrocytosis Spherocytes Tear Drop Cells Ovalocytes VBG pH POC VBG pCO2 POC VBG pO2 VBG HCO3 VBG O2 Sat (Harris) VBG Base Excess Sodium 142 Potassium 3.9 Chloride 109 H Carbon Dioxide 28 Anion Gap 6 L BUN 18.6 H Creatinine 1.1 Est GFR (CKD-EPI)AfAm 52.65 Est GFR (CKD-EPI)NonAf 45.42 POC Glucometer 125 Random Glucose 89 Lactic Acid Calcium 8.7 Phosphorus 3.8 Magnesium 2.3 Total Bilirubin 0.6 AST 15 ALT 14 Alkaline Phosphatase 68 Creatine Kinase CK-MB (CK-2) Troponin I Total Protein 5.9 L Albumin 3.0 L Urine Color Urine Appearance Urine pH Ur Specific Twain Urine Protein Urine Glucose (UA) Urine Ketones Urine Blood Urine Nitrite Urine Bilirubin Urine Urobilinogen Ur Leukocyte Esterase Urine WBC (Auto) Urine RBC (Auto) Urine Casts (Auto) U Pathogenic Cast Auto U Epithel Cells (Auto) Urine Bacteria (Auto) Blood Type Antibody Screen Active Medications Generic Name Dose Route Start Last Admin Trade Name Freq PRN Reason Stop Dose Admin Citalopram Hydrobromide 40 mg 04/01/20 10:00 04/01/20 09:47 Celexa - PO 40 mg DAILY CHIKIS Administration Heparin Sodium (Porcine) 5,000 unit 03/31/20 22:30 04/01/20 06:29 Heparin - SQ 5,000 unit TID CHIKIS Administration Sodium Chloride 1,000 mls @ 83 mls/hr 03/31/20 22:30 04/01/20 03:38 Normal Saline - IV 83 mls/hr ASDIR CHIKIS Administration Ceftriaxone Sodium 1 gm/ 50 mls @ 100 mls/hr 04/01/20 11:30 Dextrose IVPB DAILY CHIKIS Protocol Vancomycin HCl 1,000 mg in 250 mls @ 200 mls/hr 04/02/20 10:00 Vancomycin (Pre-Docked) IVPB DAILY@1000 CHIKIS Protocol Insulin Aspart 1 vial 04/01/20 07:00 04/01/20 12:19 Novolog Vial Sliding Scale - SQ Not Given ACHS CHIKIS Protocol Lisinopril 40 mg 04/01/20 10:00 04/01/20 09:47 Prinivil PO 40 mg DAILY CHIKIS Administration Memantine 10 mg 04/01/20 10:00 04/01/20 09:47 Namenda - PO 10 mg BID CHIKIS Administration ASSESSMENT/PLAN: Problem List - Problems (1) Acute metabolic encephalopathy Assessment/Plan: head ct negative and mentation back to baseline. Initially noted to have elevated WBC at 20 which normalized with initiation of antibiotics in the ED. She is currently on Vanco and Ceftriaxone. UA with mild UTI, pending UC blood cultures with gram positive cocci will repeat blood cultures monitor mental status, monitor labs and daily labs will order PT Code(s): G93.41 - METABOLIC ENCEPHALOPATHY (2) Bacteremia due to Gram-positive bacteria Assessment/Plan: repeat blood cultures to confirm Code(s): R78.81 - BACTEREMIA (3) Fever Assessment/Plan: tmax 101.6 monitor fever curve Code(s): R50.9 - FEVER, UNSPECIFIED Qualifiers: Fever type: unspecified Qualified Code(s): R50.9 - Fever, unspecified (4) Leukocytosis Assessment/Plan: now resolved but will monitor daily Code(s): D72.829 - ELEVATED WHITE BLOOD CELL COUNT, UNSPECIFIED Qualifiers: Leukocytosis type: bandemia Qualified Code(s): D72.825 - Bandemia (5) DVT prophylaxis Assessment/Plan: on heparin Code(s): Z29.9 - ENCOUNTER FOR PROPHYLACTIC MEASURES, UNSPECIFIED (6) Hypertension Assessment/Plan: bp controlled on lisinopril 40mg bp slightly elevated, but will continue to trend Code(s): I10 - ESSENTIAL (PRIMARY) HYPERTENSION Visit type - Emergency Visit Emergency Visit: Yes ED Registration Date: 03/31/20 Care time: The patient presented to the Emergency Department on the above date and was hospitalized for further evaluation of their emergent condition. - New Patient This patient is new to me today: Yes Date on this admission: 04/01/20 - Critical Care Critical Care patient: No - Discharge Referral Referred to [facility] Med P.C[facility] No - Medication Review Med list reviewed for High Risk Meds patients 65 and older: Yes
[2020-04-01] MEDS ORDERED: cefTRIAXone SODIUM 1 GM VIAL ONE (14:07)
[2020-04-01] MEDS: CEFTRIAXONE 1 GM in DEXTROSE 5%-WATER - 50 ML IVPB SCH (14:26)
[2020-04-02] MEDS: INSULIN SLIDING SCALE (NOVOLOG) 1 VIAL SQ SCH ×4 (07:23→22:48)
[2020-04-02] MEDS: HEPARIN NA (PORCINE) 5,000 UNITS/ML 1ML VIAL SQ SCH ×3 (07:25→22:48)
[2020-04-02] MEDS: SODIUM CHLORIDE 1,000 ML IV SCH ×2 (07:26→22:43)
[2020-04-02] MEDS ORDERED: INSULIN (NOVOLOG) ASPART 100 UNITS/ML 10ML VIAL ONE ×2 (07:29→19:54)
[2020-04-02 08:41] LABS: EOS % 5.4 % (0-4.5); HEMOGLOBIN 13.3 GM/dL (10.7-15.3); LYMPH % 21.3 % (8-40); MCH 29.1 pg (25.7-33.7); MCHC 33.3 g/dl (32.0-36.0); MEAN CELL VOLUME 87.3 fl (80-96); MEAN PLT VOLUME 7.2 fl (7.5-11.1); MONO % 9.7 % (3.8-10.2); NEUT % 62.6 % (42.8-82.8); PLATELET COUNT 252 K/MM3 (134-434); RBC 4.58 M/mm3 (3.60-5.2); WHITE BLOOD COUNT 7.1 K/mm3 (4.0-10.0)
[2020-04-02 09:02] LABS: ALBUMIN 3.2 g/dl (3.4-5.0); BILIRUBIN,TOTAL 0.5 mg/dL (0.2-1); BLOOD UREA NITROGEN 11.4 mg/dL (7-18); CALCIUM 8.3 mg/dL (8.5-10.1); CREATININE 0.9 mg/dL (0.55-1.3); MAGNESIUM 2.1 mg/dL (1.8-2.4); POTASSIUM 4.2 mmol/L (3.5-5.1); TOT PROT 6.2 g/dl (6.4-8.2)
--- NOTE | 2020-04-02 10:15 | PN ---
Physical Exam: SUBJECTIVE: Patient seen and examined at the bedside. Tells me she slept well and feels well. She knows she is [facility]. OBJECTIVE: Patient is a 84 year female with a significant past medical history of dementia, HTN, HLD, brought in by EMS for AMS/unresponsive at home. Patient is a poor historian, baseline dementia, AAox2. son reports that he found his mother on a rocking chair, unresponsive and had Soiled her self(urinary and bowel incontinence). He reports that he called 911, when EMS arrived, she was awake and back to her usual baseline. He denies any complaints from his mother prior to the episode. He reports that she only complained of an headache in ER. No previous episodes, No hx of seizures and no new medications have been ordered. Sepsis protocol initiated in the ED and she was give IV Vancomycin, IV Zosyn. her initial blood cultures are + gram positive cocci in clusters, repeat blood cultures are pending. covid status: not detected imaging: head ct: no acute pathology abd ct: large hiatal hernia, no acute pathology otherwise. chronic lung disease. Period Temp Pulse Resp BP Sys/Beckwith Pulse Ox Last 24 Hr 98.0 F-98.3 F 52-88 20-20 128-179/75-90 88-90 GENERAL: The patient is awake, alert, pleasantly confused. knows her name and that she is in [place] [facility] HEAD: Normal with no signs of trauma. EYES: PERRL, extraocular movements intact, sclera anicteric, conjunctiva clear. No ptosis. ENT: Ears normal, nares patent, oropharynx clear without exudates, moist mucous membranes. NECK: Trachea midline, full range of motion, supple. LUNGS: Breath sounds equal, clear to auscultation bilaterally, no wheezes HEART: Regular rate and rhythm ABDOMEN: Soft, nontender, nondistended, normoactive bowel sounds EXTREMITIES: no edema. fungal nails bilateral feet NEUROLOGICAL: Normal speech, gait not observed. PSYCH: Normal mood, normal affect. SKIN: Warm, dry, normal turgor, no rashes or lesions noted Laboratory Results - last 24 hr 03/31/20 04/01/20 04/01/20 18:10 11:44 17:31 WBC RBC Hgb Hct MCV MCH MCHC RDW Plt Count MPV Absolute Neuts (auto) Neutrophils % Lymphocytes % Monocytes % Eosinophils % Basophils % Nucleated RBC % Sodium Potassium Chloride Carbon Dioxide Anion Gap BUN Creatinine Est GFR (CKD-EPI)AfAm Est GFR (CKD-EPI)NonAf POC Glucometer 125 86 Random Glucose Calcium Magnesium Total Bilirubin AST ALT Alkaline Phosphatase Total Protein Albumin COVID-19 (WENDI) Not detected 04/01/20 04/02/20 04/02/20 23:01 07:20 07:20 WBC 7.1 RBC 4.58 Hgb 13.3 Hct 40.0 MCV 87.3 MCH 29.1 MCHC 33.3 RDW 15.0 Plt Count 252 MPV 7.2 L Absolute Neuts (auto) 4.4 Neutrophils % 62.6 Lymphocytes % 21.3 Monocytes % 9.7 Eosinophils % 5.4 H Basophils % 1.0 Nucleated RBC % 0 Sodium 141 Potassium 4.2 Chloride 110 H Carbon Dioxide 28 Anion Gap 4 L BUN 11.4 Creatinine 0.9 Est GFR (CKD-EPI)AfAm 67.10 Est GFR (CKD-EPI)NonAf 57.90 POC Glucometer 94 Random Glucose 83 Calcium 8.3 L Magnesium 2.1 Total Bilirubin 0.5 AST 17 ALT 17 Alkaline Phosphatase 67 Total Protein 6.2 L Albumin 3.2 L COVID-19 (WENDI) 04/02/20 07:21 WBC RBC Hgb Hct MCV MCH MCHC RDW Plt Count MPV Absolute Neuts (auto) Neutrophils % Lymphocytes % Monocytes % Eosinophils % Basophils % Nucleated RBC % Sodium Potassium Chloride Carbon Dioxide Anion Gap BUN Creatinine Est GFR (CKD-EPI)AfAm Est GFR (CKD-EPI)NonAf POC Glucometer 82 Random Glucose Calcium Magnesium Total Bilirubin AST ALT Alkaline Phosphatase Total Protein Albumin COVID-19 (WENDI) Active Medications Generic Name Dose Route Start Last Admin Trade Name Freq PRN Reason Stop Dose Admin Citalopram Hydrobromide 40 mg 04/01/20 10:00 04/01/20 09:47 Celexa - PO 40 mg DAILY CHIKIS Administration Heparin Sodium (Porcine) 5,000 unit 03/31/20 22:30 04/02/20 07:25 Heparin - SQ 5,000 unit TID CHIKIS Administration Sodium Chloride 1,000 mls @ 83 mls/hr 03/31/20 22:30 04/02/20 07:26 Normal Saline - IV 83 mls/hr ASDIR CHIKIS Administration Ceftriaxone Sodium 1 gm/ 50 mls @ 100 mls/hr 04/01/20 11:30 04/01/20 14:26 Dextrose IVPB 100 mls/hr DAILY CHIKIS Administration Protocol Vancomycin HCl 1,000 mg in 250 mls @ 200 mls/hr 04/02/20 10:00 Vancomycin (Pre-Docked) IVPB DAILY@1000 CHIKIS Protocol Insulin Aspart 1 vial 04/01/20 07:00 04/02/20 07:23 Novolog Vial Sliding Scale - SQ Not Given ACHS [facility] Protocol Lisinopril 40 mg 04/01/20 10:00 04/01/20 09:47 Prinivil PO 40 mg DAILY CHIKIS Administration Memantine 10 mg 04/01/20 10:00 04/01/20 22:58 Namenda - PO 10 mg BID CHIKIS Administration ASSESSMENT/PLAN: Problem List - Problems (1) Acute metabolic encephalopathy Assessment/Plan: head ct negative and mentation back to baseline. Initially noted to have elevated WBC at 20 which normalized with initiation of antibiotics in the ED. She is currently on Vanco and Ceftriaxone. UA with mild UTI, UC negative blood cultures with gram positive cocci x 2 bottles, repeating blood cultures monitor mental status, monitor labs and daily labs carotid doppler pending will order PT Code(s): G93.41 - METABOLIC ENCEPHALOPATHY (2) Bacteremia due to Gram-positive bacteria Assessment/Plan: + bactermia (gram positive) repeat blood cultures to confirm. She is on ceftriaxone and vancomycin per ID. Code(s): R78.81 - BACTEREMIA (3) Fever Assessment/Plan: had fever on admission 101.6F, fevers now resolved. Code(s): R50.9 - FEVER, UNSPECIFIED Qualifiers: Fever type: unspecified Qualified Code(s): R50.9 - Fever, unspecified (4) Leukocytosis Assessment/Plan: admitted with WBC of 20, leukocytosis now resolved but will monitor daily Code(s): D72.829 - ELEVATED WHITE BLOOD CELL COUNT, UNSPECIFIED Qualifiers: Leukocytosis type: bandemia Qualified Code(s): D72.825 - Bandemia (5) Hypertension Assessment/Plan: bp controlled on lisinopril 40mg bp slightly elevated, but will continue to trend Code(s): I10 - ESSENTIAL (PRIMARY) HYPERTENSION (6) ILD (interstitial lung disease) Assessment/Plan: ILD noted on imaging, likely chronic. has low oxygen on room air. will order respiratory pre and post but she looks comfortable at rest. pulmonary consulted for further recommendations. Code(s): J84.9 - INTERSTITIAL PULMONARY DISEASE, UNSPECIFIED (7) DVT prophylaxis Assessment/Plan: on heparin Code(s): Z29.9 - ENCOUNTER FOR PROPHYLACTIC MEASURES, UNSPECIFIED Visit type - Emergency Visit Emergency Visit: Yes ED Registration Date: 03/31/20 Care time: The patient presented to the Emergency Department on the above date and was hospitalized for further evaluation of their emergent condition. - New Patient This patient is new to me today: No - Critical Care Critical Care patient: No - Discharge Referral Referred to [facility] Med P.C.: No - Medication Review Med list reviewed for High Risk Meds patients 65 and older: Yes
[2020-04-02] MEDS ORDERED: DEXTROSE 5%-WATER - 50 ML IVPB ONE (10:30)
[2020-04-02] MEDS ORDERED: PT OWN MED DRAWER 7, Y5N ONE ×4 (10:30→16:58)
[2020-04-02] MEDS ORDERED: cefTRIAXone SODIUM 1 GM VIAL ONE (10:30)
[2020-04-02] MEDS: CEFTRIAXONE 1 GM in DEXTROSE 5%-WATER - 50 ML IVPB SCH (10:44)
[2020-04-02] MEDS: LISINOPRIL 20 MG TABLET (FP) PO SCH (10:45)
[2020-04-02] MEDS: CITALOPRAM HYDROBROMIDE 20 MG TABLET PO SCH (10:45)
[2020-04-02] MEDS: MEMANTINE HCL 10 MG TABLET (FP) PO SCH ×2 (10:45→22:48)
--- NOTE | 2020-04-02 11:24 | PN ---
Progress Note (short form) - Note Progress Note: no complaints Vital Signs Period Temp Pulse Resp BP Sys/Beckwith Pulse Ox Last 24 Hr 98.0 F-98.3 F 52-88 20-20 128-179/75-90 88-90 cor-rrr lungs clear abd soft,nt ext no edema CBC, BMP 04/02/20 07:20 04/02/20 07:20 Microbiology 03/31/20 14:08 Blood - Peripheral Venous Blood Culture - Preliminary Staphylococcus Coagulase Neg 03/31/20 14:07 Blood - Peripheral Venous Blood Culture - Preliminary Staphylococcus Coagulase Neg 03/31/20 16:00 Urine - Urine - Catheterized Urine Culture - Final NO GROWTH OBTAINED a/p fever resolved bacteremia- scn- repeat blood cultures pending continue vancomycin d/c ceftriaxone check crp in am check echo repeat blood cultures pending Problem List - Problems (1) Fever Code(s): R50.9 - FEVER, UNSPECIFIED Qualifiers: Fever type: unspecified Qualified Code(s): R50.9 - Fever, unspecified (2) Altered mental state Code(s): R41.82 - ALTERED MENTAL STATUS, UNSPECIFIED (3) Bacteremia due to Gram-positive bacteria Code(s): R78.81 - BACTEREMIA
[2020-04-02] MEDS: VANCOMYCIN 1 GRAM (PRE-DOCKED) 1,000 MG/250 ML BAG IVPB SCH (12:26)
--- NOTE | 2020-04-02 13:18 | CON.PULM ---
Consult Consult Specialty:: PULMONARY Referred by:: PMD Reason for Consultation:: ILD/HYPOXIA - History of Present Illness Chief Complaint: WEAKNESS History of Present Illness: Ratna Howell is a 84 Y F with a PMH of baseline dementia, HTN, HLD, brought in by EMS for AMS/unresponsive at home. Patient is a poor historian, baseline dementia, AAox2. Hx was provided by her son at bedside, who reports that he found his mother on a rocking chair, unresponsive and had Soiled her self( urinary and bowel incontinence). He reports that he called 911, when EMS arrived, she was awake and back to her usual baseline. He denies any complaints from his mother prior to the episode. He reports that she only complained of an headache in ER. No previous episodes, No hx of seizures. 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 Cardio/Vascular: Yes: HTN, Hyperlipdemia ...LMP: 03/31/20 ...: No - Smoking History Smoking history: Never smoked - Social History Usual Living Arrangement: Alone ADL: Family Assistance History of Recent Travel: No Home Medications - Allergies Allergies/Adverse Reactions: Allergies Allergy/AdvReac Type Severity Reaction Status Date / Time No Known Allergies Allergy Verified 03/31/20 13:20 - Home Medications Home Medications: Ambulatory Orders Citalopram Hydrobromide [Citalopram HBr] 40 mg PO DAILY 03/31/20 Lisinopril [Prinivil -] 40 mg PO DAILY 03/31/20 Memantine HCl [Memantine HCl ER] 28 mg PO DAILY 03/31/20 Omeprazole 20 mg PO DAILY 03/31/20 Pravastatin Sodium [Pravachol (Nf)] 40 mg PO HS 03/31/20 Family Medical History Family History: Unable to Obtain, Unremarkable Review of Systems - Review of Systems Constitutional: denies: Fever, Lethargy HENT: denies: Difficult Swallowing Neck: denies: Decreased ROM Cardiovascular: denies: Chest Pain Respiratory: denies: Cough, SOB Gastrointestinal: denies: Abdominal Pain Genitourinary: denies: Burning Physical Exam Vital Sings: Vital Signs Temperature 98.6 F 04/02/20 09:00 Pulse Rate 82 04/02/20 12:25 Respiratory Rate 04/02/20 09:00 Blood Pressure 150/79 04/02/20 09:00 O2 Sat by Pulse Oximetry (%) 95 04/02/20 12:25 Constitutional: Yes: Calm Eyes: Yes: EOM Intact HENT: Yes: Normocephalic Neck: Yes: Trachea Midline Cardiovascular: Yes: Regular Rate and Rhythm, S1, S2 Respiratory: Yes: CTA Bilaterally Gastrointestinal: Yes: Normal Bowel Sounds Edema: No Labs: CBC, BMP 04/02/20 07:20 04/02/20 07:20 Imaging - Results Chest X-ray: Report Reviewed, Image Reviewed EKG: Report Reviewed, Image Reviewed Problem List - Problems (1) Altered mental state Code(s): R41.82 - ALTERED MENTAL STATUS, UNSPECIFIED (2) Bacteremia due to Gram-positive bacteria Code(s): R78.81 - BACTEREMIA (3) DVT prophylaxis Code(s): Z29.9 - ENCOUNTER FOR PROPHYLACTIC MEASURES, UNSPECIFIED (4) ILD (interstitial lung disease) Code(s): J84.9 - INTERSTITIAL PULMONARY DISEASE, UNSPECIFIED Assessment/Plan EPISODE OF UNRESPONSIVENESS LIKELY TOXIC/METABOLIC IN VIEW OF + BLOOD CULTURES DO NOT SUSPECT PNEUMONIA ILD APPEARS MINIMAL AT THIS POINT AGREE WITH EMPIRIC ANTIBIOTICS/DVT PROPHYLAXSIS/O2 PRN OOB TO CHAIR F/U REPEAT BLD CULTURES Kurt LAWRENCE MD
[2020-04-02] MEDS: MINERAL OIL/PET HY-PHL TOPICAL OINTMENT 454 GM JAR TP SCH ×2 (18:03→22:48)
[2020-04-03] MEDS: HEPARIN NA (PORCINE) 5,000 UNITS/ML 1ML VIAL SQ SCH ×3 (05:48→22:36)
[2020-04-03] MEDS: INSULIN SLIDING SCALE (NOVOLOG) 1 VIAL SQ SCH ×4 (07:54→22:33)
[2020-04-03 09:54] LABS: BILIRUBIN,TOTAL 0.5 mg/dL (0.2-1); BLOOD UREA NITROGEN 7.1 mg/dL (7-18); CALCIUM 8.3 mg/dL (8.5-10.1); CREATININE 0.8 mg/dL (0.55-1.3); TOT PROT 5.9 g/dl (6.4-8.2)
[2020-04-03 10:18] LABS: BASO % 1.2 % (0-2.0); EOS % 7.1 % (0-4.5); HEMATOCRIT 38.2 % (32.4-45.2); HEMOGLOBIN 12.7 GM/dL (10.7-15.3); LYMPH % 19.9 % (8-40); MCH 29.1 pg (25.7-33.7); MCHC 33.4 g/dl (32.0-36.0); MEAN PLT VOLUME 7.5 fl (7.5-11.1); MONO % 10.2 % (3.8-10.2); NEUT % 61.6 % (42.8-82.8); PLATELET COUNT 257 K/MM3 (134-434); RBC 4.39 M/mm3 (3.60-5.2); RDW 14.9 % (11.6-15.6); WHITE BLOOD COUNT 7.2 K/mm3 (4.0-10.0)
--- NOTE | 2020-04-03 10:25 | CONSULT ---
Admitting History and Physical - Admission History of Present Illness: Per EMR-0Patient is a 84 year female with a significant past medical history of dementia, HTN, HLD, brought in by EMS for AMS/unresponsive at home. Patient is a poor historian, baseline dementia, AAox2. son reports that he found his mother on a rocking chair, unresponsive and had Soiled her self(urinary and bowel incontinence). He reports that he called 911, when EMS arrived, she was awake and back to her usual baseline. He denies any complaints from his mother prior to the episode. He reports that she only complained of an headache in ER. No previous episodes, No hx of seizures and no new medications have been ordered. Sepsis protocol initiated in the ED and she was give IV Vancomycin, IV Zosyn. her initial blood cultures are + gram positive cocci in clusters, repeat blood cultures are pending. covid status: not detected Selected Entries 04/01/20 04/01/20 04/01/20 00:07 12:26 15:00 Breakfast 75% Diet Tolerated Well Eating (Feeding Independent ) Ability Lunch 75% Supper Pulse Rate Blood Pressure 04/01/20 04/02/20 04/02/20 18:30 10:16 14:28 Breakfast 75% 75% Diet Tolerated Fair Fair Fair Eating (Feeding ) Ability Lunch 100% Supper 50% Pulse Rate Blood Pressure 04/02/20 04/03/20 23:00 06:00 Breakfast Diet Tolerated Fair Eating (Feeding ) Ability Lunch Supper 75% Pulse Rate 58 L Blood Pressure 144/78 Laboratory Tests 03/31/20 04/02/20 14:07 07:20 WBC 20.0 H 7.1 On reg diet/thin liquids History Source: Medical Record Limitations to Obtaining History: Clinical Condition, Dementia - Past Medical History [employer] DRY CELL: Yes: Dementia Cardiovascular: Yes: HTN, Hyperlipdemia ...LMP: 03/31/20 ...: No - Smoking History Smoking history: Never smoked - Social History ADL: Family Assistance History of Recent Travel: No History - Admission Reason For Visit: SEPSIS - Diagnostics CT Scan: Report Reviewed (ct chest-NAD. Large HH) - General Mental Status: Awake and Alert, Able to Follow Commands, Confused Attention: Intact Ability to Follow Directions: Fair Head/Neck Control: Good - Hearing Hearing: Functional Speech Evaluation - Communication Primary Language: KHMER Communication: Yes: Simple Responses Oral Expression Ability: Yes: No Impairment - Speech Production Able to Make Needs Known: Yes: WNL Intelligibility: Yes: WNL - Speech Characteristics Voice Loudness: Normal Voice Pitch: Yes: Normal Voice Phonatory-based Quality: Yes: Normal Speech Pattern: Normal Speech Clarity: < 100% Nasal Resonance: Normal Articulation: Yes: Precise - Language/Auditory Comprehension Follows: Yes: 1 Stage Simple Commands Observation: Able to respond to yes/no queries: Yes, Yes/No Confusion: No, Comprehends Conversational Speech: Yes - Swallow Evaluation/Bedside Assessment Current Nutritional Intake: Regular Oral Secretions: Yes: WFL Dentition: Yes: Adequate Facial Symmetry at Rest: Symmetrical Facial Symmetry on Retraction: Symmetrical Facial Movement: Controlled Against Resistance Opening: Normal Against Resistance Closing: Normal Pucker Lips: Normal Smile: Normal Lingual Movement: Normal, Symmetric Lingual Speed of Movement: Normal Lingual Movement Strgth Against Opposition: Normal Lingual Movement Characteristics: Normal Laryngeal Elevation: WFL Laryngeal Movement: Able to Palpate Rate of Intake: WFL Bolus Size: WFL Labial Seal: WFL Chewing: Impaired (increased, extended) Oral Prep Time: WFL A-P Transit: WFL Pocketing: None Timing of Swallow: Delayed Coughing/Throat Clear: No Change in Voice: No Recommendations - Speech Evaluation, Impression/Plan Impression: Verbal, confused, feeding self lunch, may benfit from assistance, food cut up, softer. - Dysphagia Impressions/Plan Dysphagia Impressions: Mild Impairment *Silent aspiration: cannot be R/O at bedside Dysphagia Treatment Plan: Small Bites, Chin Tuck/Down, Clear Pocket Food, Facilitative Feeding, Elevate HOB during feed - Recommendations Diet Consistency: Regular (soft, cut up, easy to chew, assist pt as needed) Liquids: Thin Liquids Supplement: Ensure
--- NOTE | 2020-04-03 11:04 | PN ---
Progress Note (short form) - Note Progress Note: ambulated with walker in the calvo no complaints Vital Signs Period Temp Pulse Resp BP Sys/Beckwith Pulse Ox Last 24 Hr 97.9 F-98.5 F 57-71 18-18 144-165/78-95 89-96 cor-rrr lungs clear itchy rash RUE abd soft,nt ext no edema CBC, BMP 04/03/20 07:17 04/03/20 07:17 Microbiology 03/31/20 14:07 Blood - Peripheral Venous Blood Culture - Preliminary Staphylococcus Coagulase Neg 03/31/20 14:08 Blood - Peripheral Venous Blood Culture - Preliminary Staphylococcus Coagulase Neg 04/02/20 07:20 Blood - Peripheral Venous Blood Culture - Preliminary NO GROWTH OBTAINED AFTER 24 HOURS, INCUBATION TO CONTINUE FOR 4 DAYS. 04/02/20 07:25 Blood - Peripheral Venous Blood Culture - Preliminary NO GROWTH OBTAINED AFTER 24 HOURS, INCUBATION TO CONTINUE FOR 4 DAYS. 03/31/20 16:00 Urine - Urine - Catheterized Urine Culture - Final NO GROWTH OBTAINED crp 0.4 a/p fever resolved bacteremia- scn- repeat blood cultures pending continue vancomycin check echo repeat blood cultures pending d/w hospitalist Problem List - Problems (1) Fever Code(s): R50.9 - FEVER, UNSPECIFIED Qualifiers: Fever type: unspecified Qualified Code(s): R50.9 - Fever, unspecified (2) Altered mental state Code(s): R41.82 - ALTERED MENTAL STATUS, UNSPECIFIED (3) Bacteremia due to Gram-positive bacteria Code(s): R78.81 - BACTEREMIA
[2020-04-03] MEDS: CITALOPRAM HYDROBROMIDE 20 MG TABLET PO SCH (11:14)
[2020-04-03] MEDS: LISINOPRIL 20 MG TABLET (FP) PO SCH (11:15)
[2020-04-03] MEDS: MEMANTINE HCL 10 MG TABLET (FP) PO SCH ×2 (11:15→22:39)
[2020-04-03] MEDS: VANCOMYCIN 1 GRAM (PRE-DOCKED) 1,000 MG/250 ML BAG IVPB SCH (11:15)
[2020-04-03] MEDS: MINERAL OIL/PET HY-PHL TOPICAL OINTMENT 454 GM JAR TP SCH ×2 (11:16→22:36)
--- NOTE | 2020-04-03 11:16 | PN ---
Progress Note (short form) - Note Progress Note: PULMONARY Denies shortness of breath, cough. No further fevers. Vital Signs Period Temp Pulse Resp BP Sys/Beckwith Pulse Ox Last 24 Hr 97.9 F-98.2 F 57-82 18-18 144-165/78-96 89-99 Gen: NAD at rest Heart: RRR Lung: decreased breath sounds at the bases Abd: soft, nontender Ext: no edema CBC, BMP 04/03/20 07:17 04/03/20 07:17 Active Medications Citalopram Hydrobromide (Celexa -) 40 mg PO DAILY [facility] Last Admin: 04/02/20 10:45 Dose: 40 mg Documented by: Emollient Ointment (Aquaphor -) 1 applic TP BID [facility] Last Admin: 04/02/20 22:48 Dose: 1 applic Documented by: Heparin Sodium (Porcine) (Heparin -) 5,000 unit SQ TID [facility] Last Admin: 04/03/20 05:48 Dose: 5,000 unit Documented by: Sodium Chloride (Normal Saline -) 1,000 mls @ 83 mls/hr IV ASDIR [facility] Last Admin: 04/02/20 22:43 Dose: Not Given Documented by: Vancomycin HCl (Vancomycin (Pre-Docked)) 1,000 mg in 250 mls @ 200 mls/hr IVPB DAILY@1000 [facility]; Protocol Last Admin: 04/02/20 12:26 Dose: 200 mls/hr Documented by: Insulin Aspart (Novolog Vial Sliding Scale -) 1 vial SQ ACHS [facility]; Protocol Last Admin: 04/03/20 07:54 Dose: Not Given Documented by: Lisinopril (Prinivil) 40 mg PO DAILY [facility] Last Admin: 04/02/20 10:45 Dose: 40 mg Documented by: Memantine (Namenda -) 10 mg PO BID [facility] Last Admin: 04/02/20 22:48 Dose: 10 mg Documented by: A/P Staph Bacteremia Sepsis Acute Kidney Injury improving Lactic Acidosis resolved Interstitial Lung Disease HTN Hyperlipidemia Dementia - continue antibiotics - f/u pending cultures - f/u echocardiogram - O2 to keep SpO2 >90% - DVT prophylaxis
--- NOTE | 2020-04-03 14:41 | ECHO ---
Name: LISA BELTRE Exam:Adult Echocardiogram Study Date: 04/03/2020 09:42 AM Age: 84 yrs Reason For Study: LV Function Height: 65 in Weight: 138 lb BSA: 1.7 m2 MMode/2D Measurements & Calculations IVSd: 0.90 cm Ao root diam: 3.2 cm LVIDd: 3.7 cm LA dimension: 3.0 cm LVIDs: 2.7 cm LVPWd: 0.92 cm EDV(Teich): 57.3 ml LVOT diam: 2.0 cm ESV(Teich): 28.0 ml LAV (MOD-bp): 46.5 ml Doppler Measurements & Calculations MV V2 max: 132.5 cm/sec MV E max israel: 101.0 cm/sec MV max P.0 mmHg MV A max israel: 124.0 cm/sec MV V2 mean: 82.2 cm/sec MV E/A: 0.81 MV mean P.0 mmHg MV dec time: 0.20 sec MV V2 VTI: 41.1 cm Ao V2 max: 167.1 cm/sec AI max israel: 424.7 cm/sec Ao max P.2 mmHg AI max P.5 mmHg AI P1/2t: 845.4 msec AI dec slope: 147.1 cm/sec2 GEORGINA(V,D): 1.7 cm2 LV V1 max P.2 mmHg MR max israel: 404.0 cm/sec LV V1 max: 90.0 cm/sec MR max P.3 mmHg TR max israel: 280.7 cm/sec PA V2 max: 113.6 cm/sec TR max P.6 mmHg PA max P.2 mmHg Med Peak E' [place]: 5.4 cm/sec Med E/e': 18.6 Lat Peak E' [place]: 5.5 cm/sec Lat E/e': 18.2 Procedure A complete two-dimensional transthoracic echocardiogram was performed (2D, M-mode, Doppler and color flow Doppler). Left Ventricle The left ventricle is normal in size. Left ventricular systolic function is normal. Ejection Fraction = 55- 60%. E/A reversal suggests impaired relaxation with elevated filling pressure on TDI (E/e' 19). No re gional wall motion abnormalities noted. Right Ventricle The right ventricle is normal size. The right ventricular systolic function is normal. Atria The left atrial size is normal. Right atrial size is normal. Mitral Valve The mitral valve is normal in structure and function. There is mild mitral regurgitation. Tricuspid Valve The tricuspid valve is normal in structure and function. There is mild to moderate tricuspid regurgit ation. PASP is at least 43 mmHg if RA pressure is assumed 8 mmHg. Aortic Valve There is mild aortic sclerosis.;. Mild aortic regurgitation. Pulmonic Valve The pulmonic valve is not well visualized. Great Vessels The aortic root is normal size. Moderately dilated ascending thoracic aorta (4.3 cm). Pericardium/Pleura There is no pericardial effusion. Interpretation Summary The left ventricle is normal in size. Left ventricular systolic function is normal. No regional wall motion abnormalities noted. Ejection Fraction = 55-60%. E/A reversal suggests impaired relaxation with elevated filling pressure on TDI (E/e' 19) The right ventricular systolic function is normal. The left atrial size is normal. Right atrial size is normal. There is mild mitral regurgitation. There is mild to moderate tricuspid regurgitation. PASP is at least 43 mmHg if RA pressure is assumed 8 mmHg There is mild aortic sclerosis. Mild aortic regurgitation. Moderately dilated ascending thoracic aorta (4.3 cm) There is no pericardial effusion. Alex Mcknight MD 04/03/2020 02:40 PM
--- NOTE | 2020-04-03 14:54 | PN ---
Physical Exam: SUBJECTIVE: Patient seen and examined at the bedside. she is laying in the bed, in no acute distress. patient reported to be restless at night. OBJECTIVE: Patient is a 84 year female who lives at home with her family. Her past medical history includes dementia, HTN, HLD. Patient presented to the ED on 03/31/2020 for an episode of AMS/unresponsive at home. Patient is a poor historian, baseline dementia, AAox2. son reports that he found his mother on a rocking chair, unresponsive and had soiled her self (urinary and bowel incontinence). He reports that he called 911, when EMS arrived, she was awake and back to her usual baseline. He denies any complaints from his mother prior to the episode. No previous episodes, No hx of seizures and no new medications have been ordered. Sepsis protocol initiated in the ED and she was give IV Vancomycin, IV Zosyn. her initial blood cultures are + gram positive cocci in clusters, repeat blood cultures are pending. She is on vancomycin and an echo is pending. patient has low oxygen sats on room air and qualifies for home oxygen, SW aware and arrangements are being made for home oxygen delivery. covid status: not detected imaging: head ct: no acute pathology abd ct: large hiatal hernia, no acute pathology otherwise. chronic lung disease. Period Temp Pulse Resp BP Sys/Beckwith Pulse Ox Last 24 Hr 97.9 F-98.5 F 57-71 18-18 144-165/78-95 89-96 GENERAL: The patient is awake, alert, pleasantly confused. knows her name and that she is in [facility] HEAD: Normal with no signs of trauma. EYES:small patch of redness next to right eye, chronic. ENT: Ears normal, nares patent, oropharynx clear without exudates, moist mucous membranes. NECK: Trachea midline, full range of motion, supple. LUNGS: Breath sounds equal, clear to auscultation bilaterally, no wheezes HEART: Regular rate and rhythm ABDOMEN: Soft, nontender, nondistended, normoactive bowel sounds EXTREMITIES: no edema. left arm with mild erythema, started on hydrocortisone. no wheezing or shortness of breath. NEUROLOGICAL: Normal speech, gait not observed. PSYCH: Normal mood, normal affect. SKIN: Warm, dry, normal turgor, no rashes or lesions noted Laboratory Results - last 24 hr 04/02/20 04/02/20 04/03/20 17:03 22:47 05:50 WBC RBC Hgb Hct MCV MCH MCHC RDW Plt Count MPV Absolute Neuts (auto) Neutrophils % Lymphocytes % Monocytes % Eosinophils % Basophils % Nucleated RBC % Sodium Potassium Chloride Carbon Dioxide Anion Gap BUN Creatinine Est GFR (CKD-EPI)AfAm Est GFR (CKD-EPI)NonAf POC Glucometer 120 93 81 Random Glucose Calcium Total Bilirubin AST ALT Alkaline Phosphatase C-Reactive Protein Total Protein Albumin 04/03/20 04/03/20 04/03/20 07:17 07:17 11:25 WBC 7.2 RBC 4.39 Hgb 12.7 Hct 38.2 MCV 87.0 MCH 29.1 MCHC 33.4 RDW 14.9 Plt Count 257 MPV 7.5 Absolute Neuts (auto) 4.5 Neutrophils % 61.6 Lymphocytes % 19.9 Monocytes % 10.2 Eosinophils % 7.1 H Basophils % 1.2 Nucleated RBC % 0 Sodium 143 Potassium 4.0 Chloride 111 H Carbon Dioxide 25 Anion Gap 6 L BUN 7.1 Creatinine 0.8 Est GFR (CKD-EPI)AfAm 77.37 Est GFR (CKD-EPI)NonAf 66.76 POC Glucometer 98 Random Glucose 89 Calcium 8.3 L Total Bilirubin 0.5 AST 18 ALT 16 Alkaline Phosphatase 63 C-Reactive Protein 0.4 H Total Protein 5.9 L Albumin 3.0 L Active Medications Generic Name Dose Route Start Last Admin Trade Name Freq PRN Reason Stop Dose Admin Citalopram Hydrobromide 40 mg 04/01/20 10:00 04/03/20 11:14 Celexa - PO 40 mg DAILY [facility] Administration Emollient Ointment 1 applic 04/02/20 15:42 04/03/20 11:16 Aquaphor - TP 1 applic BID [facility] Administration Heparin Sodium (Porcine) 5,000 unit 03/31/20 22:30 04/03/20 14:44 Heparin - SQ 5,000 unit TID [facility] Administration Hydrocortisone 1 applic 04/03/20 22:00 Hytone 0.5% Cream - TP BID [facility] Sodium Chloride 1,000 mls @ 83 mls/hr 03/31/20 22:30 04/02/20 22:43 Normal Saline - IV Not Given ASDIR [facility] Vancomycin HCl 1,000 mg in 250 mls @ 200 mls/hr 04/02/20 10:00 04/03/20 11:15 Vancomycin (Pre-Docked) IVPB 200 mls/hr DAILY@1000 [facility] Administration Protocol Insulin Aspart 1 vial 04/01/20 07:00 04/03/20 11:26 Novolog Vial Sliding Scale - SQ Not Given ACHS [facility] Protocol Lisinopril 40 mg 04/01/20 10:00 04/03/20 11:15 Prinivil PO 40 mg DAILY [facility] Administration Memantine 10 mg 04/01/20 10:00 04/03/20 11:15 Namenda - PO 10 mg BID [facility] Administration ASSESSMENT/PLAN: Problem List - Problems (1) Acute metabolic encephalopathy Assessment/Plan: head ct negative and mentation back to baseline. Initially noted to have elevated WBC at 20 which normalized with initiation of antibiotics in the ED. She is currently on Vanco. Ceftriaxone discontinued. UA with mild UTI, UC negative blood cultures with gram positive cocci x 2 bottles, repeating blood cultures negative x 24 hrs monitor mental status, monitor labs and daily labs carotid doppler negative physical therapy following Code(s): G93.41 - METABOLIC ENCEPHALOPATHY (2) Bacteremia due to Gram-positive bacteria Assessment/Plan: + bactermia (gram positive) repeated blood cultures to confirm - ngtd. She is on vancomycin per ID. Code(s): R78.81 - BACTEREMIA (3) Fever Assessment/Plan: had fever on admission 101.6F, fevers now resolved. Code(s): R50.9 - FEVER, UNSPECIFIED Qualifiers: Fever type: unspecified Qualified Code(s): R50.9 - Fever, unspecified (4) Leukocytosis Assessment/Plan: admitted with WBC of 20, leukocytosis now resolved but will monitor daily Code(s): D72.829 - ELEVATED WHITE BLOOD CELL COUNT, UNSPECIFIED Qualifiers: Leukocytosis type: bandemia Qualified Code(s): D72.825 - Bandemia (5) Hypertension Assessment/Plan: bp controlled on lisinopril 40mg bp slightly elevated, but will continue to trend Code(s): I10 - ESSENTIAL (PRIMARY) HYPERTENSION (6) ILD (interstitial lung disease) Assessment/Plan: ILD noted on imaging, likely chronic. has low oxygen on room air. respiratory pre and post performed and patient qualifies for home oxygen. Code(s): J84.9 - INTERSTITIAL PULMONARY DISEASE, UNSPECIFIED (7) DVT prophylaxis Assessment/Plan: on heparin Code(s): Z29.9 - ENCOUNTER FOR PROPHYLACTIC MEASURES, UNSPECIFIED Visit type - Emergency Visit Emergency Visit: Yes ED Registration Date: 03/31/20 Care time: The patient presented to the Emergency Department on the above date and was hospitalized for further evaluation of their emergent condition. - New Patient This patient is new to me today: No - Critical Care Critical Care patient: No - Discharge Referral Referred to [facility] Med P.C.: No - Medication Review Med list reviewed for High Risk Meds patients 65 and older: Yes
[2020-04-03] MEDS: SODIUM CHLORIDE 1,000 ML IV SCH ×2 (18:10→22:39)
[2020-04-03] MEDS ORDERED: amLODIPine BESYLATE 5 MG TABLET (FP) PO ONE (22:54)
[2020-04-03] MEDS: HYDROCORTISONE 0.5% TOPICAL CREAM 30 GM TUBE TP SCH (23:21)
[2020-04-03] MEDS ORDERED: PT OWN MED DRAWER 7, Y5N ONE (23:21)
[2020-04-04] MEDS: INSULIN SLIDING SCALE (NOVOLOG) 1 VIAL SQ SCH ×4 (06:15→22:26)
[2020-04-04] MEDS: HEPARIN NA (PORCINE) 5,000 UNITS/ML 1ML VIAL SQ SCH ×3 (06:16→22:20)
[2020-04-04 08:41] LABS: BASO % 0.9 % (0-2.0); EOS % 6.2 % (0-4.5); HEMATOCRIT 38.4 % (32.4-45.2); HEMOGLOBIN 12.9 GM/dL (10.7-15.3); LYMPH % 18.9 % (8-40); MCH 29.4 pg (25.7-33.7); MCHC 33.7 g/dl (32.0-36.0); MEAN CELL VOLUME 87.3 fl (80-96); MEAN PLT VOLUME 7.1 fl (7.5-11.1); MONO % 10.2 % (3.8-10.2); NEUT % 63.8 % (42.8-82.8); PLATELET COUNT 231 K/MM3 (134-434); RDW 14.7 % (11.6-15.6); WHITE BLOOD COUNT 7.7 K/mm3 (4.0-10.0)
[2020-04-04 09:08] LABS: ALBUMIN 2.9 g/dl (3.4-5.0); BILIRUBIN,TOTAL 0.9 mg/dL (0.2-1); BLOOD UREA NITROGEN 6.3 mg/dL (7-18); CALCIUM 8.5 mg/dL (8.5-10.1); CREATININE 0.8 mg/dL (0.55-1.3); POTASSIUM 3.8 mmol/L (3.5-5.1)
[2020-04-04] MEDS ORDERED: PT OWN MED DRAWER 7, Y5N ONE (09:33)
[2020-04-04] MEDS: CITALOPRAM HYDROBROMIDE 20 MG TABLET PO SCH (09:41)
[2020-04-04] MEDS: HYDROCORTISONE 0.5% TOPICAL CREAM 30 GM TUBE TP SCH ×2 (09:41→22:21)
[2020-04-04] MEDS: LISINOPRIL 20 MG TABLET (FP) PO SCH (09:41)
[2020-04-04] MEDS: VANCOMYCIN 1 GRAM (PRE-DOCKED) 1,000 MG/250 ML BAG IVPB SCH (09:42)
[2020-04-04] MEDS: MINERAL OIL/PET HY-PHL TOPICAL OINTMENT 454 GM JAR TP SCH ×2 (09:42→22:21)
[2020-04-04] MEDS: MEMANTINE HCL 10 MG TABLET (FP) PO SCH ×2 (09:42→22:21)
--- NOTE | 2020-04-04 09:55 | PN ---
Progress Note (short form) - Note Progress Note: PULMONARY More alert, awake today. No further fevers. Last blood cultures NGTD. Only c/o itchy rash right arm. Vital Signs Period Temp Pulse Resp BP Sys/Beckwith Pulse Ox Last 24 Hr 97.9 F-98.8 F 56-71 18-20 117-180/81-92 90-96 Gen: NAD at rest Heart: RRR Lung: decreased breath sounds at the bases Abd: soft, nontender Ext: no edema CBC, BMP 04/04/20 08:00 04/04/20 08:00 Active Medications Citalopram Hydrobromide (Celexa -) 40 mg PO DAILY [facility] Last Admin: 04/04/20 09:41 Dose: 40 mg Documented by: Emollient Ointment (Aquaphor -) 1 applic TP BID [facility] Last Admin: 04/04/20 09:42 Dose: 1 applic Documented by: Heparin Sodium (Porcine) (Heparin -) 5,000 unit SQ TID [facility] Last Admin: 04/04/20 06:16 Dose: 5,000 unit Documented by: Hydrocortisone (Hytone 0.5% Cream -) 1 applic TP BID [facility] Last Admin: 04/04/20 09:41 Dose: 1 applic Documented by: Vancomycin HCl (Vancomycin (Pre-Docked)) 1,000 mg in 250 mls @ 200 mls/hr IVPB DAILY@1000 [facility]; Protocol Last Admin: 04/04/20 09:42 Dose: 200 mls/hr Documented by: Insulin Aspart (Novolog Vial Sliding Scale -) 1 vial SQ ACHS [facility]; Protocol Last Admin: 04/04/20 06:15 Dose: Not Given Documented by: Lisinopril (Prinivil) 40 mg PO DAILY [facility] Last Admin: 04/04/20 09:41 Dose: 40 mg Documented by: Memantine (Namenda -) 10 mg PO BID [facility] Last Admin: 04/04/20 09:42 Dose: 10 mg Documented by: A/P Staph Bacteremia - ?skin source Sepsis Acute Kidney Injury improving Lactic Acidosis resolved Interstitial Lung Disease HTN Hyperlipidemia Dementia - continue antibiotics - f/u pending cultures - O2 to keep SpO2 >90% - DVT prophylaxis
--- NOTE | 2020-04-04 10:38 | PN ---
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
--- NOTE | 2020-04-04 14:43 | PN ---
Progress Note (short form) - Note Progress Note: ambulated with walker in the [place] no complaints feels well Vital Signs Period Temp Pulse Resp BP Sys/Beckwith Pulse Ox Last 24 Hr 97.9 F-98.8 F 56-62 18-20 117-180/87-92 90-96 cor-rrr lungs clear abd soft,nt ext no edema CBC, BMP 04/04/20 08:00 04/04/20 08:00 crp 0.4 Microbiology 03/31/20 14:08 Blood - Peripheral Venous Blood Culture - Final Staph Hominis Sub Sp Hominis 03/31/20 14:07 Blood - Peripheral Venous Blood Culture - Final Staph Hominis Sub Sp Hominis 04/02/20 07:20 Blood - Peripheral Venous Blood Culture - Preliminary NO GROWTH OBTAINED AFTER 48 HOURS, INCUBATION TO CONTINUE FOR 3 DAYS. 04/02/20 07:25 Blood - Peripheral Venous Blood Culture - Preliminary NO GROWTH OBTAINED AFTER 48 HOURS, INCUBATION TO CONTINUE FOR 3 DAYS. 03/31/20 16:00 Urine - Urine - Catheterized Urine Culture - Final NO GROWTH OBTAINED a/p fever resolved bacteremia- scn-2 of 4 bottles repeat blood cultures negative-c/w skin farzana d/c vancomycin no clear source of fever identified but clinically she has improved d/w hospitalist Problem List - Problems (1) Fever Code(s): R50.9 - FEVER, UNSPECIFIED Qualifiers: Fever type: unspecified Qualified Code(s): R50.9 - Fever, unspecified (2) Altered mental state Code(s): R41.82 - ALTERED MENTAL STATUS, UNSPECIFIED (3) Bacteremia due to Gram-positive bacteria Code(s): R78.81 - BACTEREMIA
--- NOTE | 2020-04-04 15:28 | PN ---
Progress Note (short form) - Note Progress Note: S: Afebrile overnight. No complaints today Vital Signs Temperature 98.4 F 04/04/20 14:00 Pulse Rate 77 04/04/20 14:00 Respiratory Rate 20 04/04/20 14:00 Blood Pressure 125/73 04/04/20 14:00 O2 Sat by Pulse Oximetry (%) 92 L 04/04/20 14:00 PE: Gen: NAD, awake, alert HEENT: Nc/At, ELVI, MMM LUNG: Inspiratory squeaking noted, otherwise CTA with no rales or wheezes; on 2L NC CARD: RRR no murmurs ABD: Soft, NT/ND, + BS, no guarding or rebound EXT: No edema noted, strong pulses SKIN: No skin breakdown noted, sacrum not observed today CBC, BMP 04/04/20 08:00 04/04/20 08:00 Microbiology 03/31/20 14:08 Blood - Peripheral Venous Blood Culture - Final Staph Hominis Sub Sp Hominis 03/31/20 14:07 Blood - Peripheral Venous Blood Culture - Final Staph Hominis Sub Sp Hominis 04/02/20 07:20 Blood - Peripheral Venous Blood Culture - Preliminary NO GROWTH OBTAINED AFTER 48 HOURS, INCUBATION TO CONTINUE FOR 3 DAYS. 04/02/20 07:25 Blood - Peripheral Venous Blood Culture - Preliminary NO GROWTH OBTAINED AFTER 48 HOURS, INCUBATION TO CONTINUE FOR 3 DAYS. 03/31/20 16:00 Urine - Urine - Catheterized Urine Culture - Final NO GROWTH OBTAINED Active Medications Citalopram Hydrobromide (Celexa -) 40 mg PO DAILY [facility] Last Admin: 04/04/20 09:41 Dose: 40 mg Documented by: Emollient Ointment (Aquaphor -) 1 applic TP BID [facility] Last Admin: 04/04/20 09:42 Dose: 1 applic Documented by: Heparin Sodium (Porcine) (Heparin -) 5,000 unit SQ TID [facility] Last Admin: 04/04/20 15:02 Dose: 5,000 unit Documented by: Hydrocortisone (Hytone 0.5% Cream -) 1 applic TP BID [facility] Last Admin: 04/04/20 09:41 Dose: 1 applic Documented by: Insulin Aspart (Novolog Vial Sliding Scale -) 1 vial SQ ACHS [facility]; Protocol Last Admin: 04/04/20 11:45 Dose: Not Given Documented by: Lisinopril (Prinivil) 40 mg PO DAILY [facility] Last Admin: 04/04/20 09:41 Dose: 40 mg Documented by: Memantine (Namenda -) 10 mg PO BID [facility] Last Admin: 04/04/20 09:42 Dose: 10 mg Documented by: Assessment/Plan: Gram + Bacteremia Acute metabolic encephalopathy (resolved) History of HTN History of ILD --Gram + bacteremia likely c/w skin farzana considering subtype --Discontined vancomycin by ID today --Will observe overnight and if pt remains afebrile can discharge tomorrow --Oxygen has been set up at home --Physical therapy note reviewed; will require RW (has at home), but otherwise independent in ADLs --BP remains controlled; continue current medications --Continue oxygen therapy 2/2 ILD not in any exacerbation of lung pathology Dispo: D/C Planning if remains afebrile Chris Mitchell DO - IM
[2020-04-05] MEDS: HEPARIN NA (PORCINE) 5,000 UNITS/ML 1ML VIAL SQ SCH (07:54)
[2020-04-05] MEDS: INSULIN SLIDING SCALE (NOVOLOG) 1 VIAL SQ SCH ×2 (07:54→11:24)
--- NOTE | 2020-04-05 08:13 | DS ---
Physical Exam: SUBJECTIVE: No events overnight. Afebrile after 24hours off antibiotics. Likely BCx contaminant based on subspecies of bacteria. OBJECTIVE: Vital Signs Period Temp Pulse Resp BP Sys/Beckwith Pulse Ox Last 24 Hr 97.4 F-98.5 F 62-93 18-20 125-153/73-96 92-95 PHYSICAL EXAM PE: Gen: NAD, awake, alert HEENT: Nc/At, ELVI, MMM LUNG: Inspiratory squeaking noted, otherwise CTA; on 2L NC CARD: RRR no murmurs ABD: Soft, NT/ND, + BS, no guarding or rebound EXT: No edema noted, strong pulses SKIN: No skin breakdown observed LABS Laboratory Results - last 24 hr 04/04/20 04/04/20 04/04/20 08:00 08:00 11:44 WBC 7.7 RBC 4.40 Hgb 12.9 Hct 38.4 MCV 87.3 MCH 29.4 MCHC 33.7 RDW 14.7 Plt Count 231 MPV 7.1 L Absolute Neuts (auto) 4.9 Neutrophils % 63.8 Lymphocytes % 18.9 Monocytes % 10.2 Eosinophils % 6.2 H Basophils % 0.9 Nucleated RBC % 0 Sodium 141 Potassium 3.8 Chloride 111 H Carbon Dioxide 27 Anion Gap 3 L BUN 6.3 L Creatinine 0.8 Est GFR (CKD-EPI)AfAm 77.37 Est GFR (CKD-EPI)NonAf 66.76 POC Glucometer 126 Random Glucose 90 Calcium 8.5 Total Bilirubin 0.9 AST 20 ALT 16 Alkaline Phosphatase 61 Total Protein 6.0 L Albumin 2.9 L 04/04/20 04/04/20 04/05/20 17:38 22:25 07:53 WBC RBC Hgb Hct MCV MCH MCHC RDW Plt Count MPV Absolute Neuts (auto) Neutrophils % Lymphocytes % Monocytes % Eosinophils % Basophils % Nucleated RBC % Sodium Potassium Chloride Carbon Dioxide Anion Gap BUN Creatinine Est GFR (CKD-EPI)AfAm Est GFR (CKD-EPI)NonAf POC Glucometer 115 102 94 Random Glucose Calcium Total Bilirubin AST ALT Alkaline Phosphatase Total Protein Albumin Microbiology 04/02/20 07:20 Blood - Peripheral Venous Blood Culture - Preliminary NO GROWTH OBTAINED AFTER 72 HOURS, INCUBATION TO CONTINUE FOR 2 DAYS. 04/02/20 07:25 Blood - Peripheral Venous Blood Culture - Preliminary NO GROWTH OBTAINED AFTER 72 HOURS, INCUBATION TO CONTINUE FOR 2 DAYS. 03/31/20 14:08 Blood - Peripheral Venous Blood Culture - Final Staph Hominis Sub Sp Hominis 03/31/20 14:07 Blood - Peripheral Venous Blood Culture - Final Staph Hominis Sub Sp Hominis 03/31/20 16:00 Urine - Urine - Catheterized Urine Culture - Final NO GROWTH OBTAINED HOSPITAL COURSE: Date of Admission:03/31/20 Date of Discharge: 04/05/20 Pt was admitted on 03/31/2020 due to fever and found to have Gram + staph coag negative in 2/4 bottles noted on fever work-up. No clear source was identified and antibiotics were given before urine culture was collected initially. Patient underwent multiple imaging modalities including echocardiogram due to Gram + bacteremia and was given Vancomycin throughout her stay. Patient remained afebrile and source was not identified. BCx subspecies was investigated and noted to be Staph coag negative hominis species with possibility of contaminent source. ABX were discontinued at this time and patient remained afebrile after 2 4hours. Pt has no complaints throughout and has been hemodynamically stable. In addition, pt was noted to be hypoxic requiring 2LNC while ambulating during her stay due to her ongoing ILD history. Patient was ordered oxygen for home therapy which has been delivered. She is being discharged today in stable condition and has instructions to follow-up with her primary care physician and outpatient pu lmonologists. Minutes to complete discharge: 33 Discharge Summary Problems reviewed: Yes Reason For Visit: SEPSIS Current Active Problems Acute metabolic encephalopathy (Acute) Altered mental state (Acute) Bacteremia due to Gram-positive bacteria (Acute) DVT prophylaxis (Acute) Fever (Acute) Hypertension (Acute) ILD (interstitial lung disease) (Acute) Leukocytosis (Acute) Condition: Stable - Instructions Diet, Activity, Other Instructions: You were seen here due to your fever. During your stay your blood cultures were drawn and you were placed on antibiotics. There was no source of your fever that was located and you were observed off antibiotics and never had any more fevers during your stay. MEDICATIONS: No medications were changed. Please continue them as they have been below You underwent antibiotic treatment while in the hospital Oxygen has been provided for you at home and you should wear 2L to help with your oxygen FOLLOW-UP: Please follow with your primary care provider and your home pulmonologists. Referrals: Kwaku Mcknight MBBS [Primary Care Provider] - Disposition: HOME - Home Medications Comprehensive Discharge Medication List: Ambulatory Orders Citalopram Hydrobromide [Citalopram HBr] 40 mg PO DAILY 03/31/20 Lisinopril [Prinivil -] 40 mg PO DAILY 03/31/20 Memantine HCl [Memantine HCl ER] 28 mg PO DAILY 03/31/20 Omeprazole 20 mg PO DAILY 03/31/20 Pravastatin Sodium [Pravachol (Nf)] 40 mg PO HS 03/31/20 This patient is new to me today: No Emergency Visit: Yes ED Registration Date: 03/31/20 Care time: The patient presented to the Emergency Department on the above date and was hospitalized for further evaluation of their emergent condition. Critical Care patient: No - Discharge Referral Referred to [facility] Med P.C.: No
[2020-04-05] MEDS: LISINOPRIL 20 MG TABLET (FP) PO SCH (09:29)
[2020-04-05] MEDS: CITALOPRAM HYDROBROMIDE 20 MG TABLET PO SCH (09:29)
[2020-04-05] MEDS: MEMANTINE HCL 10 MG TABLET (FP) PO SCH (09:29)
[2020-04-05] MEDS: MINERAL OIL/PET HY-PHL TOPICAL OINTMENT 454 GM JAR TP SCH (09:30)
[2020-04-05] MEDS: HYDROCORTISONE 0.5% TOPICAL CREAM 30 GM TUBE TP SCH (09:30)
[2020-04-05 10:35] VITALS: TEMP 98.1
[2020-04-05 10:37] VITALS: BP 151/86; PULSE 59
--- NOTE | 2020-04-05 11:00 | PN ---
Progress Note, Physician - Current Medication List Current Medications: Active Medications Citalopram Hydrobromide (Celexa -) 40 mg PO DAILY [facility] [place] Last Admin: 04/05/20 09:29 Dose: 40 mg Documented by: Emollient Ointment (Aquaphor -) 1 applic TP BID [facility] [place] Last Admin: 04/05/20 09:30 Dose: 1 applic Documented by: Heparin Sodium (Porcine) (Heparin -) 5,000 unit SQ TID [facility] [place] Last Admin: 04/05/20 07:54 Dose: 5,000 unit Documented by: Hydrocortisone (Hytone 0.5% Cream -) 1 applic TP BID [facility] [place] Last Admin: 04/05/20 09:30 Dose: 1 applic Documented by: Insulin Aspart (Novolog Vial Sliding Scale -) 1 vial SQ ACHS [facility] [place]; Protocol Last Admin: 04/05/20 07:54 Dose: Not Given Documented by: Lisinopril (Prinivil) 40 mg PO DAILY [facility] [place] Last Admin: 04/05/20 09:29 Dose: 40 mg Documented by: Memantine (Namenda -) 10 mg PO BID [facility] [place] Last Admin: 04/05/20 09:29 Dose: 10 mg Documented by: - Objective Vital Signs: Vital Signs Temperature 98.1 F 04/05/20 10:34 Pulse Rate 59 L 04/05/20 10:34 Respiratory Rate 20 04/05/20 10:34 Blood Pressure 151/86 04/05/20 10:34 O2 Sat by Pulse Oximetry (%) 94 L 04/05/20 10:34 Labs: CBC, BMP 04/04/20 08:00 04/04/20 08:00 Assessment/Plan A/P Staph Bacteremia - ?skin source Sepsis Acute Kidney Injury improving Lactic Acidosis resolved Interstitial Lung Disease HTN Hyperlipidemia Dementia - continue antibiotics - f/u pending cultures - O2 to keep SpO2 >90% - DVT prophylaxis
== END 2020-04-05 13:05 | disposition home or self-care (01) | DRG 871 ==
LOC: JER 12:43 → JERBED 21:07 → J8W 04-01 00:22
PROVIDERS: ADMIT Internal Medicine; ATTEND Internal Medicine
DX: A41.1 Sepsis due to other specified staphylococcus (principal); G93.41 Metabolic encephalopathy; N17.9 Acute kidney failure, unspecified; J84.9 Interstitial pulmonary disease, unspecified; E87.2 Acidosis; R50.9 Fever, unspecified; I10 Essential (primary) hypertension; E78.5 Hyperlipidemia, unspecified; F03.90 Unspecified dementia, unspecified severity, without behavioral disturbance, psychotic disturbance, mood disturbance, and anxiety; F41.9 Anxiety disorder, unspecified; E11.9 Type 2 diabetes mellitus without complications; R19.7 Diarrhea, unspecified; K44.9 Diaphragmatic hernia without obstruction or gangrene; D72.829 Elevated white blood cell count, unspecified; E86.0 Dehydration; I25.10 Atherosclerotic heart disease of native coronary artery without angina pectoris; M54.5 Low back pain; R41.82 Altered mental status, unspecified; R09.02 Hypoxemia
CPT/HCPCS: 36415; 70450-TC; 71045-TC-FY; 71260-TC; 74177-TC; 76775-TC; 76856-TC; 80048; 80053; 81003; 82550; 82553; 82607; 82803; 82962; 83605; 83735; 84100; 84439; 84443; 84484; 85025; 86140; 86850; 86900; 86901; 87040; 87086; 87186; 93005; 93010; 93306-TC; 93880-TC; 94761; 97116-GP; 97161-GP; 99285-25; J0131; J1644; Q9967; U0003

== ENCOUNTER 2022-08-04 08:34 | Inpatient (IN) | payer OTHER ==
[2022-08-04] MEDS: SODIUM CHLORIDE 1,000 ML IV SCH (10:06)
[2022-08-04] MEDS ORDERED: ACETAMINOPHEN 1000 MG/100 ML BAG IVPB PRN (10:11)
[2022-08-04 10:44] LABS: ALBUMIN 3.5 g/dl (3.4-5.0); BILIRUBIN,TOTAL 1.8 mg/dl (0.2-1); CREATININE 0.9 mg/dl (0.55-1.3); TOT PROT 7.1 g/dl (6.4-8.2)
[2022-08-04 10:55] LABS: MAGNESIUM 2.1 mg/dL (1.8-2.4); PHOSPHOROUS 3.8 mg/dl (2.5-4.9)
[2022-08-04 11:00] LABS: HEMATOCRIT 35.4 % (32.4-45.2); HEMOGLOBIN 12.5 G/dL (10.7-15.3); MCH 29.9 pg (25.7-33.7); MCHC 35.3 g/dl (32.0-36.0); MEAN CELL VOLUME 84.8 fl (80-96); MEAN PLT VOLUME 7.1 fl (7.5-11.1); PLATELET COUNT 248.1 10^3/uL (134-434); RBC 4.18 10^6/uL (3.60-5.2); WHITE BLOOD COUNT 13.1 10^3/uL (4.0-10.8)
[2022-08-04 12:30] LABS: N-TERMINAL BNP 662.8 pg/ml (5-450)
[2022-08-04 17:19] VITALS: BMI 24.0
[2022-08-04 23:25] LABS: EPITHELIAL CELLS FEW /hpf; URINE HYALINE CAST 0-2 /lpf; URINE MUCUS 1+
[2022-08-05 08:49] LABS: HEMATOCRIT 30.7 % (32.4-45.2); HEMOGLOBIN 10.7 G/dL (10.7-15.3); MCH 29.7 pg (25.7-33.7); MCHC 34.8 g/dl (32.0-36.0); MEAN CELL VOLUME 85.5 fl (80-96); MEAN PLT VOLUME 7.5 fl (7.5-11.1); PLATELET COUNT 249.9 10^3/uL (134-434); RBC 3.59 10^6/uL (3.60-5.2); RDW 14.9 % (11.6-15.6); WHITE BLOOD COUNT 9.6 10^3/uL (4.0-10.8)
[2022-08-05] MEDS ORDERED: PROPOFOL 20 ML ONE (12:06)
[2022-08-05] MEDS ORDERED: SUCCINYLCHOLINE CHLORIDE 200 MG/10 ML SYRINGE ONE (12:06)
[2022-08-05] MEDS ORDERED: BUPIVACAINE HCL 50 ML ONE (12:07)
[2022-08-05] MEDS ORDERED: ceFAZolin SODIUM 1 GM VIAL ONE ×2 (12:47→21:52)
[2022-08-05] MEDS ORDERED: TRANEXAMIC ACID 1000 MG/10 ML VIAL ONE (12:54)
[2022-08-05] MEDS ORDERED: METOPROLOL TARTRATE 5 MG/5 ML VIAL ONE (13:11)
[2022-08-05] MEDS ORDERED: ONDANSETRON 4 MG/2 ML VIAL IVPUSH PRN ×2 (14:17→18:54)
[2022-08-05] MEDS ORDERED: LACTATED RINGERS SOLUTION 1,000 ML IV SCH ×2 (14:30→18:54)
[2022-08-05] MEDS: SODIUM CHLORIDE 1,000 ML IV SCH (18:08)
[2022-08-05 18:24] LABS: ALBUMIN 2.9 g/dl (3.4-5.0); BILIRUBIN,TOTAL 1.3 mg/dl (0.2-1); CALCIUM 8.5 mg/dl (8.5-10); CREATININE 0.7 mg/dl (0.55-1.3); TOT PROT 6.3 g/dl (6.4-8.2)
[2022-08-05 18:34] LABS: HEMATOCRIT 35.3 % (32.4-45.2); HEMOGLOBIN 12.1 G/dL (10.7-15.3); MCH 29.4 pg (25.7-33.7); MCHC 34.3 g/dl (32.0-36.0); MEAN PLT VOLUME 7.2 fl (7.5-11.1); PLATELET COUNT 279.5 10^3/uL (134-434); RBC 4.11 10^6/uL (3.60-5.2); RDW 15.3 % (11.6-15.6); WHITE BLOOD COUNT 13.6 10^3/uL (4.0-10.8)
[2022-08-05] MEDS ORDERED: SODIUM CHLORIDE 1,000 ML IV SCH (18:54)
[2022-08-05] MEDS ORDERED: ACETAMINOPHEN 1000 MG/100 ML BAG IVPB PRN (18:54)
[2022-08-05 20:25] LABS: ANISOCYTOSIS 1+
[2022-08-05 20:26] LABS: PLATELET ESTIMATE ADEQUATE
[2022-08-05] MEDS: CEFAZOLIN 1 GM in DEXTROSE 5%-WATER - 50 ML IVPB SCH (21:58)
[2022-08-06] MEDS: CEFAZOLIN 1 GM in DEXTROSE 5%-WATER - 50 ML IVPB SCH ×2 (05:59→12:01)
[2022-08-06] MEDS: LISINOPRIL 20 MG TABLET PO SCH (10:32)
[2022-08-06] MEDS: MEMANTINE HCL 10 MG TABLET (FP) PO SCH ×2 (10:32→23:17)
[2022-08-06] MEDS: CITALOPRAM HYDROBROMIDE 20 MG TABLET PO SCH (10:32)
[2022-08-06] MEDS: PANTOPRAZOLE 40 MG TABLET PO SCH (10:32)
[2022-08-06] MEDS: ENOXAPARIN NA (PORCINE) 40 MG/0.4 ML DISP.SYRIN SQ SCH (12:01)
[2022-08-06 15:06] LABS: CALCIUM 7.7 mg/dl (8.5-10); CREATININE 0.7 mg/dl (0.55-1.3); MAGNESIUM 1.8 mg/dL (1.8-2.4); PHOSPHOROUS 2.8 mg/dl (2.5-4.9)
[2022-08-06] MEDS ORDERED: traMADol HCL 50 MG TABLET PO PRN (16:10)
[2022-08-06] MEDS: ACETAMINOPHEN 1000 MG/100 ML BAG IVPB SCH ×2 (16:21→23:17)
[2022-08-06 16:33] LABS: BASO % 0.8 % (0-2.0); EOS % 2.2 % (0-4.5); HEMATOCRIT 28.7 % (32.4-45.2); HEMOGLOBIN 9.8 GM/dL (10.7-15.3); LYMPH % 9.2 % (8-40); MCH 29.4 pg (25.7-33.7); MEAN CELL VOLUME 86.3 fl (80-96); MEAN PLT VOLUME 7.4 fl (7.5-11.1); MONO % 11.3 % (3.8-10.2); NEUT % 76.5 % (42.8-82.8); PLATELET COUNT 262 10^3/uL (134-434); RBC 3.33 M/mm3 (3.60-5.2); RDW 14.1 % (11.6-15.6); WHITE BLOOD COUNT 9.5 K/mm3 (4.0-10.0)
[2022-08-06] MEDS ORDERED: POTASSIUM CHLORIDE TABS 20 MEQ TABLET.ER (FP) PO ONE (17:03)
[2022-08-06] MEDS: ATORVASTATIN CA 10 MG TABLET (FP) PO SCH (23:17)
[2022-08-07] MEDS: ACETAMINOPHEN 1000 MG/100 ML BAG IVPB SCH ×3 (04:37→18:55)
[2022-08-07 08:41] LABS: ALBUMIN 2.4 g/dl (3.4-5.0); BILIRUBIN,TOTAL 1.3 mg/dl (0.2-1); CALCIUM 8.2 mg/dl (8.5-10); CREATININE 0.7 mg/dl (0.55-1.3); MAGNESIUM 1.7 mg/dL (1.8-2.4); PHOSPHOROUS 2.5 mg/dl (2.5-4.9); TOT PROT 5.3 g/dl (6.4-8.2)
[2022-08-07] MEDS ORDERED: MAGNESIUM SULF 50% (8.12 MEQ/2 ML-1 GM VIAL) IVPB ONE (09:23)
[2022-08-07] MEDS ORDERED: MAGNESIUM 1GM/D5W - 1 GM/100 ML IVPB IVPB ONE (09:45)
[2022-08-07 09:52] LABS: BASO % 0.6 % (0-2.0); EOS % 2.7 % (0-4.5); HEMATOCRIT 30.1 % (32.4-45.2); HEMOGLOBIN 10.3 GM/dL (10.7-15.3); LYMPH % 6.9 % (8-40); MCH 29.4 pg (25.7-33.7); MCHC 34.1 g/dl (32.0-36.0); MEAN CELL VOLUME 86.2 fl (80-96); MEAN PLT VOLUME 7.2 fl (7.5-11.1); NEUT % 79.8 % (42.8-82.8); PLATELET COUNT 304 10^3/uL (134-434); RBC 3.49 M/mm3 (3.60-5.2); RDW 14.2 % (11.6-15.6); WHITE BLOOD COUNT 10.9 K/mm3 (4.0-10.0)
[2022-08-07] MEDS: CITALOPRAM HYDROBROMIDE 20 MG TABLET PO SCH (10:47)
[2022-08-07] MEDS: MEMANTINE HCL 10 MG TABLET (FP) PO SCH ×2 (10:47→21:36)
[2022-08-07] MEDS: LISINOPRIL 20 MG TABLET PO SCH (10:47)
[2022-08-07] MEDS: PANTOPRAZOLE 40 MG TABLET PO SCH (10:47)
[2022-08-07] MEDS: ENOXAPARIN NA (PORCINE) 40 MG/0.4 ML DISP.SYRIN SQ SCH (10:48)
[2022-08-07] MEDS: ATORVASTATIN CA 10 MG TABLET (FP) PO SCH (21:36)
[2022-08-08] MEDS: PANTOPRAZOLE 40 MG TABLET PO SCH (09:35)
[2022-08-08] MEDS: CITALOPRAM HYDROBROMIDE 20 MG TABLET PO SCH (09:35)
[2022-08-08] MEDS: MEMANTINE HCL 10 MG TABLET (FP) PO SCH ×2 (09:35→21:00)
[2022-08-08] MEDS: LISINOPRIL 20 MG TABLET PO SCH (09:35)
[2022-08-08] MEDS: ENOXAPARIN NA (PORCINE) 40 MG/0.4 ML DISP.SYRIN SQ SCH (09:35)
[2022-08-08] MEDS: ACETAMINOPHEN 1000 MG/100 ML BAG IVPB SCH ×2 (14:52→20:58)
[2022-08-08] MEDS ORDERED: LISINOPRIL 20 MG TABLET PO ONE (16:58)
[2022-08-08] MEDS: ATORVASTATIN CA 10 MG TABLET (FP) PO SCH (20:59)
[2022-08-09] MEDS: ACETAMINOPHEN 1000 MG/100 ML BAG IVPB SCH ×2 (02:40→08:18)
[2022-08-09 05:56] VITALS: RESP 18
[2022-08-09 08:45] LABS: CREATININE 0.8 mg/dl (0.55-1.3); MAGNESIUM 1.8 mg/dL (1.8-2.4)
[2022-08-09] MEDS: ENOXAPARIN NA (PORCINE) 40 MG/0.4 ML DISP.SYRIN SQ SCH (09:29)
[2022-08-09] MEDS: PANTOPRAZOLE 40 MG TABLET PO SCH (09:30)
[2022-08-09] MEDS: CITALOPRAM HYDROBROMIDE 20 MG TABLET PO SCH (09:30)
[2022-08-09] MEDS: MEMANTINE HCL 10 MG TABLET (FP) PO SCH (09:30)
[2022-08-09 09:48] LABS: EOS % 6.5 % (0-4.5); HEMATOCRIT 30.6 % (32.4-45.2); HEMOGLOBIN 10.3 GM/dL (10.7-15.3); LYMPH % 10.3 % (8-40); MCH 29.1 pg (25.7-33.7); MCHC 33.7 g/dl (32.0-36.0); MEAN CELL VOLUME 86.5 fl (80-96); MEAN PLT VOLUME 6.8 fl (7.5-11.1); MONO % 9.7 % (3.8-10.2); NEUT % 72.5 % (42.8-82.8); PLATELET COUNT 410 10^3/uL (134-434); RBC 3.53 M/mm3 (3.60-5.2); RDW 14.3 % (11.6-15.6); WHITE BLOOD COUNT 9.4 K/mm3 (4.0-10.0)
[2022-08-09] MEDS ORDERED: LISINOPRIL 20 MG TABLET PO SCH (10:00)
[2022-08-09 12:07] VITALS: BP 137/73; PULSE 64; TEMP 98.3
== END 2022-08-09 13:32 | disposition home or self-care (01) | DRG 481 ==
LOC: FER 08:34 → FM/S 10:20
PROVIDERS: ATTEND Internal Medicine
PROC: 0QS706Z Reposition Left Upper Femur with Intramedullary Internal Fixation Device, Open Approach (ICD-10-PCS; principal; 2022-08-05 13:02)
DX: S72.145A Nondisplaced intertrochanteric fracture of left femur, initial encounter for closed fracture (principal); I50.30 Unspecified diastolic (congestive) heart failure; I11.0 Hypertensive heart disease with heart failure; E78.5 Hyperlipidemia, unspecified; F03.90 Unspecified dementia, unspecified severity, without behavioral disturbance, psychotic disturbance, mood disturbance, and anxiety; F32.A Depression, unspecified; I08.1 Rheumatic disorders of both mitral and tricuspid valves; R55 Syncope and collapse; K21.9 Gastro-esophageal reflux disease without esophagitis; W18.39XA Other fall on same level, initial encounter; Y92.009 Unspecified place in unspecified non-institutional (private) residence as the place of occurrence of the external cause; Y99.8 Other external cause status
CPT/HCPCS: 0241U-QW; 36415; 71045-TC-FY; 73502-TC-LT-FY; 80048; 80053; 81003; 81015; 82962; 83036; 83735; 83880; 84100; 84443; 84484; 85025; 85027; 86850; 86900; 86901; 87086; 93005; 93306-TC; 93880-TC; 94760; 94761; 97116-GP; 97162-GP; 99285-25; C1713; C9803-CS; U0003; U0005